=== PATIENT | female | born 1945 | race Caucasian/White ===

== ENCOUNTER 2017-03-24 15:41 | Inpatient (IN) | payer MEDICARE ==
[2017-03-24] MEDS ORDERED: Lorazepam 2 MG/ML VIAL ONE ×2 (16:35→17:10)
[2017-03-24] MEDS ORDERED: Ondansetron HCl/PF 4 MG/2 ML Vial IVP PRN (17:00)
[2017-03-24] MEDS ORDERED: Acetaminophen 325 MG TAB PO PRN (17:00)
[2017-03-24] MEDS ORDERED: cloNIDine 0.1 MG TAB PO PRN (17:03)
[2017-03-24] MEDS ORDERED: Lorazepam 1 MG TAB PO PRN (17:03)
[2017-03-24 17:41] LABS: #Lymphocytes 0.3 thou/uL (1.20-3.40); #Neutrophils 3.7 thou/uL (1.40-6.50); %Eosinophils 0.1 % (0.0-10.0); %Lymphocytes 7.6 % (21.0-51.0); %Monocytes 0.7 % (0.0-10.0); Hematocrit 34.3 % (36.0-47.0); Mean Platelet Volume 7.9 fL (7.4-10.4); Red Blood Cell (RBC) Count 3.44 mill/uL (4.20-5.40); White Blood Cell (WBC) Count 4.1 thou/uL (4.8-10.8)
[2017-03-24 17:49] LABS: ALT (SGPT) 21 U/L (8-55); AST (SGOT) 28 U/L (5-34); Alkaline Phosphatase 73 U/L (40-150); Anion Gap 18 mmol/L (10-20); BUN (Urea Nitrogen) 14 mg/dL (9.8-20.1); Bilirubin, Total 0.2 mg/dL (0.2-1.2); CK (CPK) 91 U/L (29-168); Calc. Creatinine Clearance 0 mL/min (70-130); Calcium 8.9 mg/dL (7.8-10.44); Carbon Dioxide 17 mmol/L (23-31); Chloride 110 mmol/L (98-107); Estimated GFR-MDRD 43; Globulin 2.5 g/dL (2.4-3.5); Protein, Total 6.4 g/dL (6.0-8.3)
--- NOTE | 2017-03-24 17:49 | HP ---
Transferred from [place]. Referred to the [facility] by [facility] for respiratory failure. HISTORY OF PRESENT ILLNESS: The patient states she has been short of breath for months to years, bad for 2 months, worse daily, cannot breathe lying down. She says she wakes up short of breath. She h as marked dyspnea on exertion and nonproductive cough. No fever, sweats or chills. PAST MEDICAL HISTORY: Pertinent for hypertension, hypothyroidism, anxiety, and depression. CURRENT MEDICATIONS: Lipitor 20 mg a day, escitalopram 10 mg a day, tramadol 50 mg as needed, tizani dine 4 mg once a day, levothyroxine 88 mcg a day, omeprazole 20 mg a day, lisinopril 20 mg a day. ALLERGIES: PENICILLIN, SULFA. PAST SURGICAL HISTORY: Hysterectomy, , appendectomy, bladder suspension. She has had breas t implants. FAMILY HISTORY: Mother has coronary artery disease. Father is with coronary artery disease , cancer, diabetes, and CVAs. SOCIAL HISTORY: , FULL CODE STATUS. is next of kin. She quit smoking cigarettes 40 years ago. She drinks alcohol, but will not give me an idea of how much. REVIEW OF SYSTEMS: General: No headaches. She states she did pass out 4 months ago, was seen in [facility] emergency room and released. Eyes: Poor vision. No double vision or flashing lights. She wears glasses. Ears, Nose and Throat: No ear pain or drainage. No nasal bleeding. No trouble swallowing . Cardiac: No chest pain. She states she cannot lie down and breathe. She wakes up at night short of breath. Respirations: Nonproductive cough, shortness of breath. She has cold all the time. Ga strointestinal: She vomits all the time, nauseated all the time. She states she has abdominal pain with vomiting. She occasionally had blood in her emesis, no blood in her stools. No diarrhea. Rebekah tourinary: She states she has little incontinence, no dysuria or hematuria. Musculoskeletal: She s tates she swells in her legs. She states she has pain all over all the time. I cannot get her to be more specific. Neurologic: No history of strokes, seizures or focal weakness. Psychiatric: Anxie ty, depression, on medicines. Skin: She states she has always bruised. Heme/Lymph: No tender or s wollen lymph nodes in axilla, inguinal or cervical area. PHYSICAL EXAMINATION: GENERAL: She is anxious, tremulous woman. INITIAL VITAL SIGNS: In [place], blood pressure 108/80, pulse 72, respirations 25, O2 saturatio n 100 on room air. She was subsequently put on CPAP, respiratory rate stayed the same, O2 sat stayed the same. Here, she has the BiPAP that has been removed. She still has a respiratory rate of 20-25 with 100% sat on room air. HEAD, EYES, EARS, NOSE AND THROAT: Reveals pupils equal, round, and reactive to light. Extraocular movements are intact. Sclerae white. Tympanic membranes are clear. Nose is clear. Oral mucous mem branes are wet. NECK: Supple, without jugular venous distention, adenopathy or thyromegaly. CHEST: Clear to auscultation and percussion. HEART: Regular rate and rhythm. First and second heart sounds are clear. There are no murmurs or g allops. ABDOMEN: Soft, bowel sounds are normal. There is no hepatosplenomegaly, no mass, no rebound, no bru its. EXTREMITIES: Reveal no cyanosis, clubbing or edema. PULSES: Carotid, radial, femoral, and dorsalis pedis pulses intact. SKIN: Warm and dry without bruises or rash. HEME/LYMPHATIC: No tender or swollen lymph nodes in axilla, inguinal or cervical area. X-RAY FINDINGS: Chest x-ray, no cardiomegaly, CHF or infiltrate. LABORATORY: White count 3.7, hemoglobin 12, platelet count 280. D-dimer less than 0.27. Blood gas, pH 7.35, CO2 35, O2 181. Comp metabolic profile normal except for a creatinine of 1.35. She has a lactic acid of 6.3. ASSESSMENT: 1. Hyperventilation syndrome. 2. Lactic acidosis. 3. Hypertension. 4. Anxiety, depression. 5. Hypothyroidism. PLAN: 1. Pulmonary consult. 2. T4, T3, TSH. 3. Repeat CBC and basic metabolic profile in the morning. 4. Repeat lactate in the morning. 5. I have discussed this case with Dr. Eng. He will see her with me. She is certainly confusin g; however, her excellent saturation, her months of a problem, her tremulousness and anxiety lead to a diagnosis of hyperventilation syndrome. She does admit to being numb on her fingertips in her mout h, but states this is present all the time. This lady could have chronic hyperventilation. I have d iscussed it as said with Dr. Eng and we are going to give her 1 mg of Ativan p.r.n. to see if we can calm her down. Certainly she is a dilemma in some ways, but I see no objective evidence for sign ificant respiratory problem in this patient from heart, lungs, etc.
[2017-03-24 17:52] LABS: Troponin I Less than 0.010 ng/mL (< 0.028)
[2017-03-24] MEDS ORDERED: Azithromycin 500 MG VIAL ONE (18:46)
[2017-03-24 20:46] LABS: Troponin I Less than 0.010 ng/mL (< 0.028)
[2017-03-24 21:07] VITALS: BMI 25.7
--- NOTE | 2017-03-24 21:19 | RAD ---
AP VIEW CHEST 03/24/17 HISTORY: Dyspnea. AP view chest is obtained on 03/24/17. Comparison made to an earlier in day 03/24/17. AP view chest demonstrates degenerative changes seen in the right acromioclavicular joint. Old healed fractures seen in the right 7, 8 and 9 ribs. Old healed left 8th rib fracture also seen. No other ac venkat abnormality seen. IMPRESSION: Healed bilateral old rib fractures. No acute intrathoracic abnormality seen. No evidence of effusions , pneumonia or pneumothorax seen. POS: [facility]
[2017-03-25] MEDS ORDERED: traMADol HCl 50 MG TAB PO PRN (01:20)
[2017-03-25] MEDS ORDERED: Fioricet 325/50/40 mg Tablet PO PRN (01:21)
[2017-03-25] MEDS: Zolpidem Tartrate 5 MG TAB PO PRN ×2 (01:32→21:56)
[2017-03-25 04:37] LABS: #Lymphocytes 0.5 thou/uL (1.20-3.40); #Monocytes 0.1 thou/uL (0.11-0.59); #Neutrophils 3.3 thou/uL (1.40-6.50); %Eosinophils 0.1 % (0.0-10.0); %Monocytes 3.3 % (0.0-10.0); Hematocrit 29.6 % (36.0-47.0); Mean Platelet Volume 7.8 fL (7.4-10.4); Red Blood Cell (RBC) Count 2.96 mill/uL (4.20-5.40); White Blood Cell (WBC) Count 3.9 thou/uL (4.8-10.8)
[2017-03-25 04:45] LABS: Anion Gap 11 mmol/L (10-20); BUN (Urea Nitrogen) 15 mg/dL (9.8-20.1); Calc. Creatinine Clearance 48 mL/min (70-130); Calcium 8.2 mg/dL (7.8-10.44); Carbon Dioxide 22 mmol/L (23-31); Chloride 112 mmol/L (98-107); Estimated GFR-MDRD 46
--- NOTE | 2017-03-25 15:02 | CON ---
DATE OF SERVICE: 03/25/2017 SERVICE: Pulmonary Medicine. REASON FOR CONSULTATION: Shortness of breath. HISTORY OF PRESENT ILLNESS: The patient is a 71-year-old white female. She is in her usual state of health currently. She presented to the hospital because of increasing cough, sputum production, and difficulty with breathing. She has difficulty breathing which is basically prominent feature of her life. She has not been formally diagnosed with any lung issues. She has a [id number] history of smoking, but quit very remotely. She has a cough on a daily basis. It is worse at night, first thin g in the morning. She has horrendous reflux disease, for which she takes antacid pill. This helps w ith some of her pain, but she continues to have persistent reflux. She endorses symptoms consistent with rhinitis, as well as obstructive sleep apnea. Either way, she landed in the emergency departmen t because of some of this difficulty with breathing. Up transiently, she was placed on BiPAP, but it became apparent when the ABG suggests she was hypoventilating that she did not need this therapy. S he was subsequently deescalated and a dose of Ativan was provided which seemed to provide her with a little bit of relief. Her thyroid was checked. On this, it appears that she is being over replaced. PAST MEDICAL HISTORY: 1. Hypertension. 2. Anxiety disorder. 3. Major depressive disorder. 4. Hypothyroidism. PAST SURGICAL HISTORY: 1. Hysterectomy. 2. section. 3. Appendectomy. 4. Bladder suspension. 5. Breast implants. FAMILY HISTORY: Noncontributory. SOCIAL HISTORY: Negative for current alcohol, tobacco or illicit drug use. She has a [id number] h istory of smoking, but quit over 40 years ago. She has no formal exposures to chemicals, dust, asbes tos or tuberculosis, but she [place] the soil is very topher and fine, and she feels that this is getting into her lungs. ALLERGIES: PENICILLIN. MEDICATIONS: List of her inpatient medications were reviewed. Couple of small updates were made at this time. REVIEW OF SYSTEMS: General, head, ears, eyes, nose, throat, cardiovascular, respiratory, GI, , mus culoskeletal, neurologic and skin is negative except as mentioned in the HPI. PHYSICAL EXAMINATION: VITAL SIGNS: Afebrile, pulse 76, blood pressure 116/75, respirations of 16, saturation 99% on room a ir. GENERAL: The patient is awake, alert, in no apparent distress. LUNGS: Excellent air entry. There is minimally prolonged expiratory phase. The right lung has expi ratory wheezes associated with forced exhalation. The left lung does not. I do not appreciate any c rackles. Rhonchi clear with cough on the right. HEART: Normal rate, regular. ABDOMEN: Soft, nontender, nondistended, bowel sounds positive. MUSCULOSKELETAL: No cyanosis or clubbing. There is no pitting in the bilateral lower extremities. NEUROLOGIC: Grossly nonfocal. LABORATORY DATA: WBC 3.9, hemoglobin 9.8, platelets 222,000. Neutrophil count is 83%. Basic metabo lic profile is essentially unremarkable with a down trending creatinine of 1.15. TSH 0.2. Liver fun ction studies are unremarkable. Cardiac enzymes x2 were negative. A blood gas was performed demonst rating normal pH with a low pCO2 and pO2 that was quite elevated. Blood cultures x2 are unremarkable to date. IMAGING: CT of the abdomen and pelvis from the demonstrated no obvious overt emphysematous gregory ges. I do not appreciate any bronchiectasis in the bibasilar region. Chest x-ray demonstrates some old rib fractures that have healed. That being said, the diaphragm hav e good contour to them suggesting that we are not dealing with her horrendous hyperexpansion of the b ilateral lung ely. ASSESSMENT: 1. Hyperthyroidism, iatrogenic. 2. Dyspnea on exertion. 3. Gastroesophageal reflux disease with terrible nighttime symptoms. 4. Rhinitis. 5. Obstructive sleep apnea, suspected. PLAN: At this point, we will give the patient nebulized medication to see if this provides her with any relief. If it does, she can be sent out on p.r.n. nebulizer and/or MDI type of medication. I wi ll have her return to clinic in roughly 2-3 weeks in the outpatient setting. A CT scan of the chest will be performed. My suspicion is there will not be anything on it referable to her dyspnea on exer tion. If it is, additional investigation may need to be considered, but if there is not, from purely lung perspective, she will be stable for transition out of the hospital. We need to back off on her Synthroid just a touch in the outpatient setting, and she will need to touch base with her primary c are physician regarding the appropriate dose of that medication. For the acid reflux, I recommended the patient not eat or drink within 2 hours of being or going to sleep, and I have requested the irineo ent to invest in something that allows her sleep on a wedge to prevent any reflux related inflammatio n of the lungs in the evening time. Once we get into the outpatient setting, I will investigate obst ructive sleep apnea, and look for any intrinsic lung disease with formal pulmonary function studies. I am not here this weekend, but if there are any questions, please notify Dr. Espino. I certainly thi nk she would be or from the lung perspective, it would be reasonable to dismiss her from the hospital if we find no abnormalities on the CT of the chest.
--- NOTE | 2017-03-25 16:35 | CT ---
CT OF THORAX NONCONTRAST 03/25/17 COMPARISON: 11/19/16 CLINICAL HISTORY: Dyspnea. FINDINGS: Granulomatous calcification of the chest is seen. There is coronary artery calcium. Calcified bilater al breast implants with areas of lobularity to indicate areas of extracapsular rupture. There is no evidence of consolidation or effusion. No pneumothorax. Multilevel Schmorl's node formati on seen within the imaged spine. Chronic appearing fracture deformity is seen at the lateral right cl avicle. There are remote appearing multifocal bilateral rib deformities to indicate sequela from migel te trauma. IMPRESSION: No evidence of consolidation or effusion. There is granulomatous calcification of the chest including punctate hyperdense nodularity. Diffuse vascular disease including coronary artery calcium. Evidence of remote trauma to the chest. Correlate with patient's history. POS: [facility]
--- NOTE | 2017-03-25 16:47 | RAD ---
LEFT HAND 3 VIEWS: Date: 03/25/17 HISTORY: Ulnar deviation of fingers. Comparison made to left hand films of 11/15/15. That exam revealed a displaced oblique fracture of th e fifth metacarpal. FINDINGS: On today's exam, there has been healing of the fifth metacarpal fracture. There is flexion deformity at the fifth MCP joint and at the fifth PIP joint which was noted on the prior exam. There is deformi ty of the proximal phalanx of the fifth finger and is suggesting old, healed fracture. There is exten boby deformity at the DIP joint of the fifth finger, which is more pronounced today than on the prior study. The other phalanges are unremarkable with mild degenerative changes seen at the IP joints. There is n arrowing of the radiocarpal joint with deformity of the distal radius, which is a stable finding. IMPRESSION: Deformities involving the fifth finger are described above. The flexion deformities at the fifth MTP and PIP joints are unchanged from prior exam. POS: [facility]
--- NOTE | 2017-03-25 16:52 | RAD ---
RIGHT HAND 3 VIEWS: Date: 03/25/17 HISTORY: Inflammatory arthritides. FINDINGS: There is deformity of the proximal phalanx of the fifth finger indicating old, healed fracture. There is subluxation at the fifth MCP joint with ulnar deviation of the fifth finger. There is narrowing of the other MCP joints with mild degenerative change. There is mild degenerative change in the IP joints. There is deformity of the fourth metacarpal indicating old, healed fracture. IMPRESSION: Deformity of the fifth finger appears secondary to old fracture involving the proximal phalanx of the fifth finger with associated subluxation at the fifth MCP joint. There is evidence of old, healed fr acture of the fourth metacarpal and there are degenerative changes as described. POS: [facility]
--- NOTE | 2017-03-25 18:16 | PRG ---
DATE OF SERVICE: 03/25/2007 SUBJECTIVE: The patient was seen and examined at the bedside. She is complaining about not feeling well and having some cough for 6 months, but last 3 weeks, it is much more pronounced. There is no a ny yellowish or greenish phlegm. It is mostly mucus, but she did not look any medical attention for that. Also, she complains about some whole body cramps. OBJECTIVE: VITAL SIGNS: Blood pressure is 118/79, pulse is 82, respiratory rate is 12, temperature is 98.0. Ma ximal temperature is 98.6, O2 saturations 100%. HEENT: Atraumatic, normocephalic. Eyes: PERRLA. Sclerae nonicteric. Oral mucosa is moist. NECK: Supple. LUNGS: Clear. HEART: S1, S2 normal. No S3, no S4. ABDOMEN: Soft, nontender, obese, nondistended. EXTREMITIES: No clubbing, cyanosis or edema. NEUROLOGIC: She is alert and oriented x4. There is no any motor or sensory deficits present. Crani al nerves are intact. LABORATORY DATA: White count of 3.9. Hemoglobin 9.8, MCV 100, hematocrit 29.6, neutrophils 83.6. C hemistry shows sodium of 141, potassium 4.4, chloride 112, CO2 of 22, creatinine 1.15, glucose 121. ASSESSMENT: 1. Hyperventilation syndrome. 2. Hypertension. 3. Anxiety, depression per history. 4. Hypothyroidism. PLAN: The patient was seen by seasoning mixer who asked for CT of the chest since her TSH third genera tion shows suppressed level at 0.1894. We might consider using less hormone skipping couple of days' of dosing and make sure that she follows up with the primary care physician to make some adjustments . As soon as her testing done by Dr. Eng is finished, she will be discharged home.
[2017-03-26] MEDS ORDERED: Lorazepam 0.5 MG TAB PO SCH ×2 (09:15→09:30)
[2017-03-26] MEDS: Escitalopram Oxalate 10 mg Tablet PO SCH (11:06)
--- NOTE | 2017-03-26 13:07 | PRG ---
DATE OF SERVICE: 03/26/2017 SUBJECTIVE: The patient started wheezing again. She noticed that overnight, she feels like there is some pressure on her chest. OBJECTIVE: VITAL SIGNS: Blood pressure is 147/74, temperature is 98, pulse 97, respiratory rate 20, O2 saturati on is 98. HEENT: Head is atraumatic, normocephalic. Oral mucosa is moist. NECK: Supple. No JVDs. LUNGS: Clear. HEART: S1, S2 normal. ABDOMEN: Soft, nontender. Bowel sounds are present. EXTREMITIES: No clubbing, cyanosis or edema. NEUROLOGIC: Intact. SKIN: No rash or erythema. LABORATORY DATA: None today. IMAGES: X-rays of both hands showed deformities involving the fifth finger of the left hand with fle xion deformities at the fifth MTP and PIP joints and the x-ray of the right hand showed deformity of the fifth finger appears secondary to old fracture involving the proximal phalanx of the fifth finger with associated subluxation at the fifth MCP joint. There is also evidence of old healed fracture o f the fourth metacarpal and there are degenerative changes as described. Also, the patient had a CT of the chest done, which showed no evidence of consolidation or effusion. There was a granulomatous calcification of the chest including punctuate hyperdense nodularity and diffuse vascular disease inc luding coronary artery calcium. IMPRESSION: Hyperventilation and persistent feeling of lack of oxygen despite lack of evidence in vi ew of new findings on CT with calcifications present in the vascular system along with the coronary a rtery system. We would obtain Cardiology consultation with Dr. Killian to get diagnostic workup of her problem since we do not have good explanation why she has that. Also, she has hypertension which is well controlled, anxiety and depression. She is on SSRI and hypothyroidism on replacement. PLAN: As mentioned above. Obtain Cardiology consultation. Start her on DuoNeb since she started stewart ving some wheezing and she would need inhaler after she is discharged home.
--- NOTE | 2017-03-26 14:52 | PRG ---
DATE OF SERVICE: 03/26/2017 SUBJECTIVE: He is doing well this morning. She is walking in the [place] without getting short of christin th. OBJECTIVE: VITAL SIGNS: Sats are 96, pulse 80, blood pressure 138/80, respirations are 18. CHEST: Reveals no wheezing. CARDIAC: Normal S1, S2. No gallops. ABDOMEN: Soft, no masses. ASSESSMENT: Dyspnea of unknown etiology. PLAN: We will plan outpatient workup by Dr. Eng. She can be discharged home with a rescue inhaler.
[2017-03-26] MEDS: Lorazepam 0.5 MG TAB PO SCH (20:06)
[2017-03-27] MEDS: Zolpidem Tartrate 5 MG TAB PO PRN (00:52)
[2017-03-27] MEDS ORDERED: Levothyroxine Sodium 88 MCG TAB PO SCH (06:00)
[2017-03-27] MEDS: Escitalopram Oxalate 10 mg Tablet PO SCH (07:45)
[2017-03-27] MEDS: Lorazepam 0.5 MG TAB PO SCH (07:45)
[2017-03-27 08:22] VITALS: BP 168/84; TEMP 98.7
--- NOTE | 2017-03-27 13:53 | PRG ---
DATE OF SERVICE: 03/27/2017 SUBJECTIVE: This morning, she is awake, alert, responsive. No shortness of breath. PHYSICAL EXAMINATION: VITAL SIGNS: Sats are 96% on room air, blood pressure 160/84, temperature 98, pulse ox 98%. CHEST: No wheezing. CARDIAC: Normal S1, S2. No gallops. ABDOMEN: Soft, no masses. IMPRESSION: Dyspnea, probably chronic obstructive pulmonary disease. PLAN: She is discharged home on MDI, metered dose inhaler. She will follow up with Dr. Eng [facility].
--- NOTE | 2017-03-27 16:57 | DIS ---
DATE OF ADMISSION: 03/24/2017 DATE OF DISCHARGE: 03/27/2017 DIAGNOSES AT THE TIME OF DISCHARGE: 1. Most likely a chronic bronchitis. 2. Coronary vessel calcifications on the CT of the chest suggestive of some coronary artery disease. This sounds like a chronic problem and stable, not requiring any intervention at this point, but re quires further investigation. HISTORY OF PRESENT ILLNESS: The patient is a 71-year-old female who was transferred from [facility] Room because of shortness of breath which was gradually getting worse. She was found to have a past medical history of hypertension, hypothyroidism, anxiety and depression. Durin g the emergency room evaluation, she was found to have white count of 3.7, hemoglobin 12, platelet co unt was 280. D-dimer was less than 0.27. Blood gases showed pH of 7.35, CO2 of 35, and pO2 was 181. Comprehensive metabolic panel was normal except for creatinine which was 1.35 and she had a lactic acid of 6.3. Her chest x-ray did not show any CHF or infiltrate or cardiomegaly. The patient got ad mitted to the hospital. Her free T3 and free T4 and TSH were evaluated and TSH came back suppressed so the patient was told to hold on taking her thyroid hormone for a couple of days, then restart the normal dose and follow up with the primary care physician for further management of that issue and derrick cheatham some adjustments to the dose. Also, the patient was seen by electrician maintenance, Dr. Eng who dk mmended to try some bronchodilators and apparently she responded well to bronchodilators. Also, the CT of the chest was done which showed no PE, no evidence of consolidation or effusion. There was tahmina e granulomatous calcification of the chest including punctuate hyperdense nodularity and diffuse vasc ular disease including coronary artery calcium along with some evidence of remote trauma to the chest . The patient also had x-rays done on her both hands which showed some deformities involving the fif th finger on the left side and flexion deformities at the fifth MTP and PIP joints. Also, on the rig ht side, x-ray of the hand showed deformity of the fifth finger which appears secondary to old fractu re involving the proximal phalanx of the fifth finger and associated subluxation of the fifth MCP terrance nt. Also, there was some evidence of old healed fracture of the fourth metacarpal and there were tahmina e degenerative changes present. The patient is doing well. She is not wheezing anymore. Her chest pressure is improved with inhaler, so most likely this is a chronic bronchitis type of picture. She is going to be discharged home. PHYSICAL EXAMINATION: VITAL SIGNS: Blood pressure is fluctuating from 130s to 160s. Temperature is 98.7, pulse is 79, res piratory rate is 16. LUNGS: Clear. CARDIOVASCULAR: S1, S2 normal. No S3, no S4, no any murmur. ABDOMEN: Soft, nontender, bowel sounds are present, no organomegaly. NEUROLOGIC: The patient is going to stay on a heart healthy diet. ACTIVITY: As tolerated. MEDICATIONS: At the time of discharge, she will have albuterol 1 puff twice a day and prescription f or, and she will continue on her escitalopram oxalate 10 mg once a day, levothyroxine 88 mcg every mo rning, atorvastatin 20 mg at bedtime, lisinopril 20 mg once a day, omeprazole 20 mg once a day, tizan idine 4 mg daily, and tramadol 50 mg q.i.d. She is going to follow up with primary care physician in 1 week and she will need probably further cardiac evaluation with stress testing or Cardiology refer ral.
== END 2017-03-27 12:32 | disposition home or self-care (01) | DRG 191 ==
LOC: ERS 15:41 → T4-A 20:10
PROVIDERS: ADMIT Internal Medicine; ATTEND Internal Medicine
DX: J42 Unspecified chronic bronchitis (principal); E87.2 Acidosis; I10 Essential (primary) hypertension; E03.9 Hypothyroidism, unspecified; F41.9 Anxiety disorder, unspecified; F32.9 Major depressive disorder, single episode, unspecified; Z88.0 Allergy status to penicillin; Z88.2 Allergy status to sulfonamides; Z87.891 Personal history of nicotine dependence; F45.8 Other somatoform disorders; I25.10 Atherosclerotic heart disease of native coronary artery without angina pectoris; M20.002 Unspecified deformity of left finger(s); M20.001 Unspecified deformity of right finger(s); J31.0 Chronic rhinitis; G47.33 Obstructive sleep apnea (adult) (pediatric)
CPT/HCPCS: 36415; 71010; 71250; 80048; 83605; 84436; 84443; 84479; 85025; 86200; 86430; 93005; 94640; 96374; 96375; 96376; J0456; J2060; J7620

== ENCOUNTER 2017-06-22 04:17 | Inpatient (IN) | payer MEDICARE, OTHER ==
[2017-06-22] MEDS ORDERED: Albuterol Sulfate 2.5 mg/3 ml Neb NEB PRN (04:51)
[2017-06-22] MEDS ORDERED: Milk Of Magnesia 30 ML UDCUP PO PRN (05:31)
[2017-06-22] MEDS ORDERED: Acetaminophen 325 MG TAB PO PRN (05:31)
[2017-06-22] MEDS ORDERED: Guaifenesin DM 100-10/5 ML UDCUP PO PRN (05:31)
[2017-06-22] MEDS ORDERED: Ondansetron HCl/PF 4 MG/2 ML Vial IVP PRN (05:31)
--- NOTE | 2017-06-22 05:57 | HP ---
PRIMARY CARE PHYSICIAN: Thais Hinojosa M.D. PRESENTING COMPLAINT: Shortness of breath. HISTORY OF PRESENT ILLNESS: Ms. Makenzie Mcclellan is a 72-year-old female with a past medical history of hypertension, hyperlipidemia, hypothyroidism, and GERD, who presents to the emergency room with progressively worsening shortness of breath for the past 1 week. She reports cold symptoms, nasal congestion, wheezing, and a cough occasionally productive of clear sputum for the past week. She also reports intermittent fevers with T-max of 100 degrees Fahrenheit. She took decongestants without improvement in her symptoms. Yesterday, she noted that she became even more short of breath, had difficulty completing sentences, and unable to catch her breath. She denies chest pain, palpitations, PND, orthopnea , or edema. No history of CHF. No history of nausea, vomiting, diarrhea, or constipation. She went to primary care physician where she was found to be hypoxic in the 80s and slightly hypotensive. She was wheezing. Her EKG showed normal sinus rhythm. A chest x-ray showed no infiltrates. She was immediately placed on oxygen, as her oxygen saturation was 82% on room air and started on nebulizer treatments and steroids; however, her oxygen saturation continues to drop to 80s on room air and her wheezing continues and she was then sent to [facility] for further care and admission to inpatient service. PAST MEDICAL HISTORY: Hypertension, hyperlipidemia, GERD, hypothyroidism. PAST SURGICAL HISTORY: Hysterectomy, bladder surgery. FAMILY HISTORY: Reviewed and noncontributory. SOCIAL HISTORY: Former smoker and smoked actively for 25 years. She also drinks alcohol socially, but no history of withdrawal symptoms. No illicit drug use. ALLERGIES: PENICILLIN. HOME MEDICATIONS: Albuterol sulfate 1 puff b.i.d., atorvastatin 20 mg daily, escitalopram oxalate 10 mg daily, levothyroxine 88 mcg daily, lisinopril 20 mg daily, omeprazole 20 mg daily, tizanidine 4 mg daily, tramadol 50 mg q.i.d. REVIEW OF SYSTEMS: Twelve-point review of systems was conducted and negative except as stated in HPI. PHYSICAL EXAMINATION: VITAL SIGNS: Stable, saturation 100% on 2 liters oxygen via nasal cannula. HEENT: Normocephalic, atraumatic. PERRLA, EOMI, not pale, anicteric. Moist mucous membranes. RESPIRATORY: Bilateral wheezing diffusely. No crackles appreciated. CARDIOVASCULAR: S1 and S2 only. Regular rate and rhythm. No murmurs, rubs, or gallops. NECK: Supple, full range of movement. No JVD. ABDOMEN: Bowel sounds positive, soft, nontender, nondistended. No hepatosplenomegaly. SKIN: Warm, dry, well perfused. No rashes or lesions. MUSCULOSKELETAL: No edema. No skeletal abnormalities. NEUROLOGIC: Alert and well oriented to time, place, and person. No focal deficits. PSYCHIATRIC: Normal mood and affect. LABORATORY DATA: CBC unremarkable as well as CMP. Initial troponin 0.021. BNP 86. Chest x-ray no acute abnormalities. EKG also with no signs of acute ischemia. ASSESSMENT AND PLAN: 1. Acute hypoxic respiratory failure. The patient likely has underlying chronic obstructive pulmonary disease, although this has not been formally diagnosed. Her last admission was about 2 months ago for similar issues and she was placed on albuterol on discharge. We will place her on scheduled and p.r.n. nebulizer therapy, IV Solu-Medrol, Levofloxacin for possible pulmonary infection. We will continue oxygen supplementation and wean off. She will need to be discharged on an anticholinergic inhaler w steroid, as well as a beta agonist inhaler. Would also need an outpatient PFT to formally diagnose COPD. 2. Hypertension. Blood pressure is currently at goal. We will introduce home regimen. 3. Hyperlipidemia. Continue statins. 4. Hypothyroidism. Last TSH was around 5 recently. We will continue her home levothyroxine dose. 5. History of cramp: The patient has been seen in the outpatient basis and placed on tizanidine and tramadol. Serum potassium WNL. CODE STATUS: FULL CODE. We will also follow up on blood cultures. MTDD
[2017-06-22 06:24] VITALS: BMI 24.8
[2017-06-22] MEDS: methylPREDNISolone Sod Succ/PF 125 MG/2 ML VIAL IVP SCH ×3 (08:57→17:11)
[2017-06-22] MEDS: Heparin 5,000 UNITS/ML VIAL SC SCH ×3 (08:57→21:30)
[2017-06-22] MEDS: Benzonatate 100 MG CAP PO SCH ×3 (08:58→21:30)
[2017-06-22] MEDS: Sodium Chloride 0.9% 1,000 ML IV SCH ×2 (08:58→21:32)
[2017-06-22] MEDS: Docusate 100 MG CAP PO SCH ×2 (08:58→21:30)
[2017-06-22] MEDS ORDERED: FLU VACC TS2017-18 (>65YR) 0.5 ML SYRINGE IM ONE (10:00)
[2017-06-22] MEDS ORDERED: Prevnar 13-Val Conj/PF 0.5 ML SYRINGE IM ONE (10:00)
[2017-06-22] MEDS ORDERED: tiZANidine HCl 4 MG TAB PO SCH (12:00)
[2017-06-23] MEDS: traMADol HCl 50 MG TAB PO PRN ×2 (00:59→06:13)
[2017-06-23] MEDS: methylPREDNISolone Sod Succ/PF 125 MG/2 ML VIAL IVP SCH ×2 (01:00→06:14)
[2017-06-23] MEDS ORDERED: Azithromycin 500 MG in Sodium Chloride 0.9% 250 ML 250 ML IVPB SCH (05:00)
[2017-06-23 05:42] LABS: #Lymphocytes 0.2 thou/uL (1.20-3.40); #Monocytes 0.2 thou/uL (0.11-0.59); #Neutrophils 5.9 thou/uL (1.40-6.50); %Eosinophils 0.1 % (0.0-10.0); %Lymphocytes 3.8 % (21.0-51.0); %Monocytes 3.4 % (0.0-10.0); %Neutrophils 92.7 % (42.0-75.0); Hemoglobin 10.1 g/dL (12.0-16.0); Mean Corpuscular Hemoglobin 31.4 pg (27.0-31.0); Mean Platelet Volume 7.5 fL (7.4-10.4); Platelet Count 178 thou/uL (130-400); RBC Distribution Width 12.1 % (11.5-14.5); Red Blood Cell (RBC) Count 3.23 mill/uL (4.20-5.40); White Blood Cell (WBC) Count 6.4 thou/uL (4.8-10.8)
[2017-06-23 05:47] LABS: Anion Gap 11 mmol/L (10-20); BUN (Urea Nitrogen) 17 mg/dL (9.8-20.1); Calc. Creatinine Clearance 51 mL/min (70-130); Calcium 7.9 mg/dL (7.8-10.44); Carbon Dioxide 23 mmol/L (23-31); Chloride 108 mmol/L (98-107); Estimated GFR-MDRD 54; Glucose 144 mg/dL (83-110); Potassium 4.2 mmol/L (3.5-5.1); Sodium 138 mmol/L (136-145)
[2017-06-23] MEDS ORDERED: tiZANidine HCl 4 MG TAB PO SCH (09:00)
--- NOTE | 2017-06-23 09:23 | PDOC.PN ---
- Subjective Encounter Start Date: 06/23/17 Encounter Start Time: 12:00 Subjective: Patient with resolution of SOB and hypoxia. Still some chest congestion. -: No fever. Doesn't have nebulizer at home. - Objective Resuscitation Status: Resuscitation Status FULL:Full Resuscitation MAR Reviewed: Yes Vital Signs & Weight: Vital Signs (12 hours) Temp Pulse Resp BP Pulse Ox 06/23/17 07:49 97.8 F 83 18 97 06/23/17 07:20 97.8 F 83 18 138/67 94 L 06/23/17 06:40 97 06/23/17 06:38 70 16 06/23/17 05:27 98 06/23/17 03:40 98.2 F 84 20 188/88 H 99 06/22/17 23:57 95 06/22/17 23:35 98.0 F 88 20 180/85 H 94 L Weight Weight 144 lb 14.4 oz I&O: 06/22/17 06/23/17 06/24/17 06:59 06:59 06:59 Intake Total 1305 Balance 1305 Result Diagrams: 06/23/17 04:47 06/23/17 04:47 Phys Exam - Physical Examination Constitutional: NAD HEENT: moist MMs Respiratory: no wheezing, no rales, no rhonchi, clear to auscultation bilateral Cardiovascular: RRR, no significant murmur Gastrointestinal: soft, non-tender, positive bowel sounds Musculoskeletal: no edema Neurological: non-focal, moves all 4 limbs Psychiatric: normal affect, A&O x 3 Dx/Plan (1) Acute respiratory failure with hypoxia Code(s): J96.01 - ACUTE RESPIRATORY FAILURE WITH HYPOXIA Status: Resolved Comment: Likely COPD, now sating well on room air. (2) Hypertension Code(s): I10 - ESSENTIAL (PRIMARY) HYPERTENSION Status: Chronic (3) Hyperlipidemia Code(s): E78.5 - HYPERLIPIDEMIA, UNSPECIFIED Status: Chronic (4) Hypothyroid Code(s): E03.9 - HYPOTHYROIDISM, UNSPECIFIED Status: Chronic (5) GERD (gastroesophageal reflux disease) Code(s): K21.9 - GASTRO-ESOPHAGEAL REFLUX DISEASE WITHOUT ESOPHAGITIS Status: Chronic Qualifiers: Esophagitis presence: without esophagitis Qualified Code(s): K21.9 - Gastro -esophageal reflux disease without esophagitis - Plan cont current plan of care, continue antibiotics change to oral abx and steroids, d/c home -: f/u with pulmonology in 2-3 weeks, patient given office contact -: info for Dr. Eng. * . - Discharge Day Encounter end time: 12:30
[2017-06-23] MEDS: Sodium Chloride 0.9% 1,000 ML IV SCH (09:28)
[2017-06-23] MEDS: Benzonatate 100 MG CAP PO SCH ×2 (09:28→16:16)
[2017-06-23] MEDS: Heparin 5,000 UNITS/ML VIAL SC SCH ×2 (09:28→16:16)
[2017-06-23] MEDS: Docusate 100 MG CAP PO SCH (09:29)
[2017-06-23 15:57] VITALS: BP 141/78; TEMP 97.5
--- NOTE | 2017-06-23 18:58 | DIS ---
DATE OF ADMISSION: 06/22/2017 DATE OF DISCHARGE: 06/23/2017 PRIMARY CARE PHYSICIAN: Dr. Thais Hinojosa. ADMISSION DIAGNOSES: 1. Acute hypoxic respiratory failure. 2. Hypertension. 3. Hyperlipidemia. 4. Hypothyroidism. DISCHARGE DIAGNOSES: 1. Acute hypoxic respiratory failure, resolved, likely secondary to chronic obstructive pulmonary di sease exacerbation. 2. Hypertension. 3. Hyperlipidemia. 4. Hypothyroidism. PROCEDURES: None. CONSULTATIONS: None. SUMMARY OF HOSPITAL COURSE: This is a 72-year-old white female who has had recurrent episodes of kamini rtness of breath and respiratory difficulty over the last few months and was actually admitted in the last year for few days and saw Dr. Eng and he suspected COPD. The patient has not followed up w ith him in his clinic. She has been seen in the [facility] several more times and h as been sent home with an inhaler, which has not seemed to help her symptoms. She had a return of up per respiratory tract symptoms over the last 3-4 days and then developed respiratory distress at home and went to [facility] and found to be in hypoxic respiratory failure. She was giv en nebulizers with resolution of her hypoxia. The patient was admitted and watched overnight. She h as been stable on room air and has not required any other interventions. She has been on steroids an d antibiotics since seen yesterday. Today, her exam was normal and she is being discharged home this time with a nebulizer and instructions to follow up with Dr. Eng in 2-3 weeks. DISCHARGE MANAGEMENT: Discharged home. Follow up with Dr. Hinojosa in next week and with Dr. Eng in 2-3 weeks. ACTIVITY: As tolerated. DIET: Healthy heart, low sodium diet. Equipment prescription given for home nebulizer with mask, which works better for her. MEDICATIONS: 1. DuoNeb 3 mL nebs q.4 hours as needed for coughing, wheezing, shortness of breath, 60 vials dispen sed. 2. Levaquin 500 mg daily for another 4 days. 3. Prednisone 20 mg twice a day for 6 days. 4. Tessalon Perles 200 mg every 8 hours as needed for coughing, 60 tablets dispensed. The patient is to resume all her home medications as well. 1. Tizanidine 4 mg daily. 2. Omeprazole 20 mg daily. 3. Lisinopril 20 mg daily. 4. Levothyroxine 88 mcg daily. 5. Lexapro 10 mg daily. 6. Atorvastatin 20 mg daily. 7. Tramadol as needed.
[2017-06-23] MEDS ORDERED: predniSONE 20 MG TAB PO SCH (21:00)
[2017-06-24] MEDS ORDERED: Levothyroxine Sodium 88 MCG TAB PO SCH (06:00)
[2017-06-24] MEDS ORDERED: Atorvastatin Calcium 20 MG TAB PO SCH (09:00)
[2017-06-24] MEDS ORDERED: Lisinopril 20 MG TAB PO SCH (09:00)
[2017-06-24] MEDS ORDERED: Escitalopram Oxalate 10 mg Tablet PO SCH (09:00)
== END 2017-06-23 17:55 | disposition home or self-care (01) | DRG 189 ==
LOC: ERS 04:17 → 2SE 04:49
PROVIDERS: ADMIT Internal Medicine; ATTEND Internal Medicine
DX: J96.01 Acute respiratory failure with hypoxia (principal); J44.1 Chronic obstructive pulmonary disease with (acute) exacerbation; E03.9 Hypothyroidism, unspecified; I10 Essential (primary) hypertension; E78.5 Hyperlipidemia, unspecified; K21.9 Gastro-esophageal reflux disease without esophagitis; Z87.891 Personal history of nicotine dependence
CPT/HCPCS: 36415; 80048; 85025; 90471; 90670; 90682; 93005; 94640; A4216; G0008; G0009; J1644; J1956; J2930; J7620; Q2036

== ENCOUNTER 2017-07-13 09:45 | Outpatient (CLI) | payer MEDICARE, OTHER ==
--- NOTE | 2017-07-13 12:11 | RAD ---
PA AND LATERAL CHEST X-RAY: 07/13/2017 HISTORY: Dyspnea. COMPARISON: 06/22/2017 FINDINGS: There are bilateral breast prostheses again noted. The cardiac silhouette and pulmonary vasculature are within normal limits. The lungs remain clear. Remote bilateral rib fractures are again seen. 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 V ascular calcification in the thoracic aorta. There has been no interval change from prior exam. IMPRESSION: 1. Stable chest without evidence of acute cardiopulmonary process. 2. Remote bilateral rib fractures with remote nonunion distal right clavicle fracture. POS: [facility]
== END 2017-07-13 09:46 | disposition home or self-care (01) ==
LOC: RAD 09:45
PROVIDERS: ATTEND Internal Medicine
DX: R06.00 Dyspnea, unspecified (principal); S42.031K Displaced fracture of lateral end of right clavicle, subsequent encounter for fracture with nonunion
CPT/HCPCS: 71046

== ENCOUNTER 2018-05-25 12:03 | Inpatient (IN) | payer MEDICARE ==
[2018-05-25 12:33] LABS: Base Excess-Venous -3.7 mmol/L (-2.0 to 3.0); Bicarbonate (HCO3v) 20.6 mmol/L (22.0-28.0); CO2 Tension (PvCO2) 33.6 mmHg (40.0-50.0); Calcium, Ionized 1.09 mmol/L (See Comments:); Chloride 104 mmol/L (98-107); Hemoglobin - Calc 11.4 g/dL (12.0-16.0); O2 Tension (PvO2) 52.1 mmHg (35.0-45.0); Potassium 4.2 mmol/L (3.5-5.1); Sodium 134 mmol/L (138-145); T. Carbon Dioxide 21.6 mmol/L (22.0-28.0); pH (Venous) 7.395 (7.320-7.430); vO2 Saturation-calc 86.7 % (60.0-85.0)
--- NOTE | 2018-05-25 14:49 | RAD ---
1 VIEW CHEST: Date: 05/25/18 COMPARISON: 05/25/18. HISTORY: Shortness of breath. FINDINGS: Atherosclerosis of aorta. Normal cardiac silhouette. Pulmonary vessels and hilum are normal. Costophr enic angles are clear. Chronic changes in lung parenchyma, without consolidation or mass. No pneumoth orax or acute osseous abnormalities. Old bilateral rib fractures are noted. IMPRESSION: No acute cardiopulmonary process. POS: [facility]
[2018-05-25 14:56] LABS: Troponin I 0.015 ng/mL (< 0.028)
[2018-05-25] MEDS ORDERED: CCU Electrolyte Replacement 1 EACH IVPB ONE (15:31)
[2018-05-25] MEDS ORDERED: Ibuprofen 200 MG TAB PO PRN (15:35)
--- NOTE | 2018-05-25 15:39 | PDOC.PULCN ---
Pulmonology Consult: HPI - Date of Consult Date: 05/25/18 Time: 15:30 - Consult Details Reason for Consult: copd exacerbation Requesting Physician: obi - History of Present Illness HPI: MARILYN ROGERS is a 73 year-old F with a history of COPD who comes in with exacerbation. She is having trouble speaking more than a few words and is on Bipap. She states she has been feeling short of breath and coughing with production for the last 2-3 days. She denies fever but has had chills/sweats. She has a remote 20 pack-year smoking history, states she quit >10 years ago. She has been admitted for COPD exacerbation 1 time in the last year. She denies chest pain. She states she has had some nausea but no vomiting. She denies swelling but has had orthopnea. On presentation to outside ED she had initial O2 sat of 78%. She denies using oxygen or CPAP at home. She was placed on CPAP and sats improved to high 80s. Patient received mag, decadron, duonebs, and levoquin in the ED. Patient states she saw Dr. Eng in clinic 1 time and will not go back. Patient denies any nebulizers or inhalers at home. Pulmonology Consult: ROS - Review of Systems ROS unobtainable: other (short of breath on bipap) Constitutional: chills, sweats. negative: fever Cardiovascular: orthopnea. negative: chest pain, palpitations, edema Respiratory: cough, orthopnea, productive cough, short of breath, wheezing. negative: chest soreness, chest tightness, pain on deep breathing Pulmonology Consult: PMH Source: patient Past Medical History: HTN, COPD, hypothyroidism - Family History Family history: reviewed and not pertinent - Social History Smoking Status: Former smoker (20 pack-year history, quit >10 years ago) Alcohol Use: daily Drug Use History: none Living Situation: independent Pulmonology Consult: Meds - Medications MAR Reviewed: Yes - Allergies Allergies/Adverse Reactions: Allergies Allergy/AdvReac Type Severity Reaction Status Date / Time Penicillins Allergy Verified 06/22/17 06:52 Pulmonology Consult: PE - Physical Exam Constitutional: NAD HEENT: PERRLA, moist MMs Neck: no nodes Cardiovascular: RRR, no significant murmur Respiratory: wheezes (inspiratory and expiratory) Gastrointestinal: soft, non-tender, no distention, positive bowel sounds Musculoskeletal: no edema, pulses present Neurological: non-focal, moves all 4 limbs Psychiatric: normal affect, A&O x 3 Skin: no rash, cap refill <2 seconds Pulmonology Consult: Results - ABG Interpretation ABG Results: POC Bicarbonate Calc 20.6 mmol/L (22.0-28.0) L 05/25/18 12:30 Pulmonology Consult: A/P - Problem (1) COPD (chronic obstructive pulmonary disease) Current Visit: Yes Status: Acute (2) Hypertension Current Visit: No Code(s): I10 - ESSENTIAL (PRIMARY) HYPERTENSION Status: Chronic (3) Hypothyroid Current Visit: No Code(s): E03.9 - HYPOTHYROIDISM, UNSPECIFIED Status: Chronic (4) Acute respiratory failure with hypoxia Current Visit: No Code(s): J96.01 - ACUTE RESPIRATORY FAILURE WITH HYPOXIA Status: Resolved - Time Time: 50% of the time was spent in coordination of care (as documented) at patient's floor/unit and/or counseling patient. Time with Patient: greater than 50 minutes - Plan Plan: # COPD exacerbation - duonebs q4 laverne, q2 prn - solumedrol q6 - cont levoquin - bipap as needed - ABG in AM Fluids: NS 100ml/hr Diet: regular PPx: lovenox Dispo: >2 midnights
[2018-05-25] MEDS ORDERED: Magnesium 2 GM/NS 0.9% 100 ML 2 GM in Premix Bag 1 BAG IVPB PRN (16:28)
[2018-05-25] MEDS ORDERED: Potassium Phosphate 12 MMOL in Sodium Chloride 0.9% 250 ML 250 ML IV PRN (16:28)
[2018-05-25] MEDS ORDERED: Potassium Chloride 40 MEQ in Sodium Chloride 0.9% 250 ML 250 ML IVPB PRN (16:28)
[2018-05-25] MEDS ORDERED: Potassium Phosphate 9 MMOL in Sodium Chloride 0.9% 100 ML IVPB PRN (16:28)
[2018-05-25] MEDS ORDERED: Potassium Chloride 40 MEQ in Premix Bag 1 BAG IVPB PRN (16:28)
[2018-05-25] MEDS ORDERED: Magnesium Oxide 400 MG TAB PO PRN ×2 (16:28)
[2018-05-25] MEDS ORDERED: CCU ELECTROLYTE REPLACEMENT PROTOCOL FS PRN (16:28)
[2018-05-25] MEDS ORDERED: Potassium Phosphate 15 MMOL in Sodium Chloride 0.9% 250 ML 250 ML IV PRN (16:28)
[2018-05-25] MEDS ORDERED: Potassium Chloride 20 MEQ TAB PO PRN (16:28)
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
[2018-05-25] MEDS: ALPRAZolam 0.25 MG TAB PO PRN (17:25)
[2018-05-25] MEDS: methylPREDNISolone Sod Succ 40 MG VIAL IVP SCH (17:25)
[2018-05-25] MEDS: Sodium Chloride 0.9% 1,000 ML IV SCH (17:25)
[2018-05-25 17:58] LABS: Troponin I 0.031 ng/mL (< 0.028)
[2018-05-25 18:29] VITALS: BMI 26.0
--- NOTE | 2018-05-25 19:52 | HP ---
CHIEF COMPLAINT: Worsening shortness of breath since 4 days. HISTORY OF PRESENT ILLNESS: A 73-year-old female with past medical history significant for COPD, hypertension, and hypothyroidism, who presents with worsening shortness of breath and cough associated with wheezing since about 4 days without acute worsening in the last 24 hours. History is limited. The patient is in respiratory distress. Most of the history was obtained by review of the medical record. The patient reportedly presented to [facility] with worsening shortness of breath. She was found to have acute respiratory distress as well as peenj-fj-[id number] respiratory acidosis with pH of 7.2, hence was treated with bronchodilators, oxygen, and noninvasive respiratory support with BiPAP. She was transferred over here to the emergency room for further evaluation and treatment. The patient was further treated with bronchodilators and antibiotics and was admitted for further treatment. She denied fever or sick contacts. She admitted to some sputum, which she said to be clear. She also denied chest pain, palpitation, nausea, or vomiting. PAST MEDICAL HISTORY: 1. COPD. 2. Former smoker. 3. Hypothyroidism. 4. Hypertension. 5. Anxiety disorder. PAST SURGICAL HISTORY: 1. Bladder surgery. 2. Hysterectomy. SOCIAL HISTORY: The patient lives with . She used to smoke, but stopped for more than 10 years ago. MEDICATIONS: 1. Tramadol. 2. Tizanidine. 3. Prednisone. 4. Omeprazole. 5. Lisinopril. 6. Synthroid 88. 7. Levaquin. 8. DuoNeb. 9. Celexa 10. 10. Tessalon Perles. 11. Albuterol inhaler. Notes that these medications could not be verified as patient was unable to provide significant history due to respiratory distress. ALLERGIES: PENICILLIN. REVIEW OF SYSTEMS: Pertinent positives were included in the history of present illness. This is grossly limited due to patient's respiratory distress. PHYSICAL EXAMINATION: VITAL SIGNS: On presentation to the [facility], the patient had blood pressure of 207/143 with a pulse of 125, respiratory rate of 30, temperature of 98.6, and SpO2 of 78 on room air. GENERAL: An elderly female, in moderate to severe respiratory distress. BiPAP mask is in place. HEENT: Normocephalic and atraumatic. Oral mucosa is dry. Extraocular muscles are grossly intact. NECK: Supple, nontender with full range of motion. CHEST: Decreased air movement with prolonged expiration and scattered wheezes. Work of breathing is increased. CARDIAC: Regular rhythm. Tachycardic with normal heart sounds 1 and 2. ABDOMEN: Full, soft, nontender, nondistended with normal bowel sounds. EXTREMITIES: Grossly normal looking and atraumatic with no obvious edema or erythema. NEUROLOGIC: Conscious and alert, oriented x3 with appropriate mental status. The patient moves all extremities. There is no tremor. SKIN: No obvious rash noted. DIAGNOSTIC DATA: Venous blood gas obtained at [facility] showed pH of 7.286, pCO2 of 45.6. BMP showed sodium 133, potassium 4.0, chloride 101. CBC showed WBC count of 6.7, hemoglobin of 12.0, MCV of 96.1, platelets of 248. PT 12.8, INR 1.0, and PTT 26.6. Troponin was 0.013. CMP showed sodium 136, potassium 4.1, chloride 99, CO2 21, anion gap 20, BUN 18, creatinine 1.33, estimated eGFR 39, glucose 146, calcium 9.6, total bilirubin 0.4, total protein 7.1, albumin 4.4, globulin 2.7, alkaline phosphatase 74, AST 30, ALT 24. Chest x-ray showed hyperinflated lung with no obvious acute infiltrate. EKG showed sinus tachycardia with rate of 123. No obvious ST changes or T-wave changes noted. ASSESSMENT: 1. Acute hypercarbic and hypoxic respiratory failure. This is due to chronic obstructive pulmonary disease exacerbation. 2. Chronic obstructive pulmonary disease exacerbation. 3. Sinus tachycardia, most likely reactive mediated due to chronic obstructive pulmonary disease exacerbation. 4. History of hypertension. The patient had accelerated hypertension initially , but this has improved, and currently, blood pressure is soft. 5. History of hypothyroidism. 6. Anxiety disorder. PLAN: 1. We will continue noninvasive respiratory support (BiPAP) started in the ER. Start antibiotic therapy with Levaquin as well as bronchodilators, mucolytics and steroids. We will also get sputum culture. 2. We will restart thyroid supplementation. We will hold antihypertensives for now. 3. We will also start the patient on IV fluids for presumed some dehydration due to increased insensible loss. 4. We get serial troponin to rule out acute myocardial infarction. 5. Status: Full codes. 6. DVT prophylaxis with Lovenox. 7. Diet: Heart healthy diet as tolerated. Job ID: [id number] [facility]
[2018-05-25 20:46] LABS: Troponin I 0.051 ng/mL (< 0.028)
[2018-05-25] MEDS: Famotidine 20 MG TAB PO SCH (21:17)
[2018-05-26] MEDS: methylPREDNISolone Sod Succ 40 MG VIAL IVP SCH ×3 (00:08→18:10)
[2018-05-26] MEDS: Sodium Chloride 0.9% 1,000 ML IV SCH ×2 (02:00→10:09)
[2018-05-26] MEDS: Acetaminophen 500 MG TAB PO PRN ×3 (03:52→20:58)
[2018-05-26 05:50] LABS: Anion Gap 16 mmol/L (10-20); BUN (Urea Nitrogen) 19 mg/dL (9.8-20.1); Calc. Creatinine Clearance 47 mL/min (70-130); Calcium 9.2 mg/dL (7.8-10.44); Carbon Dioxide 19 mmol/L (23-31); Chloride 107 mmol/L (98-107); Estimated GFR-MDRD 49; Glucose 110 mg/dL (83-110); Potassium 4.4 mmol/L (3.5-5.1); Sodium 138 mmol/L (136-145)
[2018-05-26 05:58] LABS: Band 12 % (5-11); Hemoglobin 11.1 g/dL (12.0-16.0); Lymphocytes 12 % (21-51); MDiff Complete? YES; Mean Corpuscular HGB CONC 32.9 g/dL (32.0-36.0); Mean Corpuscular Hemoglobin 32.9 pg (27.0-31.0); Mean Platelet Volume 7.9 fL (7.4-10.4); Monocytes 1 % (0-10); Neutrophil 75 % (42-75); Platelet Count 209 thou/uL (130-400); RBC Distribution Width 12.6 % (11.5-14.5); Red Blood Cell (RBC) Count 3.37 mill/uL (4.20-5.40); White Blood Cell (WBC) Count 3.7 thou/uL (4.8-10.8)
[2018-05-26] MEDS: Levothyroxine Sodium 88 MCG TAB PO SCH (06:33)
--- NOTE | 2018-05-26 08:06 | RAD ---
CHEST 1 VIEW: HISTORY: Dyspnea. Followup. COMPARISON: 05/15/2018. FINDINGS: Cardiac silhouette is magnified by projection. Pulmonary vasculature upper limits of normal. Medias tinum is midline with aortic calcification. No lobar consolidation or evidence of pneumothorax. Old right rib and clavicular fractures are apparent. IMPRESSION: Stable radiographic appearance of the chest. POS: [facility]
[2018-05-26] MEDS ORDERED: Enoxaparin Sodium 40 MG/0.4 ML SYRINGE SC SCH (09:00)
[2018-05-26] MEDS: Escitalopram Oxalate 10 mg Tablet PO SCH (10:04)
[2018-05-26] MEDS: Famotidine 20 MG TAB PO SCH ×2 (10:04→20:55)
[2018-05-26] MEDS ORDERED: Albuterol Sulfate 2.5 mg/3 ml Neb NEB PRN (10:10)
--- NOTE | 2018-05-26 10:35 | PRG ---
DATE OF SERVICE: 05/26/2018 SERVICE: Pulmonary Medicine. SUBJECTIVE: The patient is doing really well from respiratory standpoint. She indicates that her breathing is much better. She is still coughing. She is bringing up yellow, green, and white stuff. That being said, she is not coughing up any blood. She used BiPAP last night. She finally got a little bit of rest. She does not have much of an appetite. She is still having some nausea. She had some vomiting yesterday, but nothing significant. Otherwise, she is returning to her usual state of health. PHYSICAL EXAMINATION: VITAL SIGNS: Afebrile, pulse 103, blood pressure 130/69, respirations 18, and saturation 97% on room air. GENERAL: The patient is awake and alert, in no apparent distress. LUNGS: Decent air entry. There is a prolonged expiratory phase with polyphonic wheezing. No crackles are appreciated. Rhonchi are noted, but clear with cough. HEART: Normal rate, regular. ABDOMEN: Soft, nontender, and nondistended. Bowel sounds are positive. MUSCULOSKELETAL: No cyanosis or clubbing. Trace pitting in the bilateral lower extremities. NEUROLOGIC: Grossly nonfocal. LABORATORY DATA: WBC 3.7, hemoglobin 11.1, and platelets 209,000. INR 1.0. PH 7.395, pCO2 of 33, PO2 of 52 on a VBG. Basic metabolic profile and liver function studies are otherwise unremarkable. Troponin is gently trending upward. DIAGNOSTIC DATA: Chest x-ray demonstrates hyperexpansion of bilateral lung ely. Otherwise, no significant acute cardiopulmonary abnormality is noted. There are some old fractures. ASSESSMENT: 1. Acute hypoxic respiratory failure. 2. Chronic obstructive pulmonary disease with acute exacerbation. 3. Hoc-YV-ziymufece myocardial infarction. 4. Obstructive sleep apnea, likely. DISCUSSION AND PLAN: We will continue antibiotics, nebulized medications, and steroids. Since she still has nausea, we will leave her on the IV. As soon as she can tolerate p.o., we will switch her over to that. Pulmonary Critical Care will continue to follow. Ultimately, she will need to follow up with Pulmonary in the outpatient setting, so we can clarify her underlying lung disease, and consider sending her for polysomnogram. Job ID: [id number] [facility]
--- NOTE | 2018-05-26 17:43 | PDOC.PN ---
- Subjective Encounter Start Date: 05/26/18 Encounter Start Time: 17:41 Subjective: admitted with acute respiratory failure requiring BIPAP. Clinically improve -: Off BIPAP. C/o chest tightness. - Objective Vital Signs & Weight: Vital Signs (12 hours) Temp Pulse Resp Pulse Ox 05/26/18 13:17 87 20 95 05/26/18 08:00 95 05/26/18 07:15 98.1 F 05/26/18 07:13 95 18 97 Weight Weight 147 lb 6.4 oz Most Recent Monitor Data Heart Rate from ECG 92 NIBP 130/74 NIBP BP-Mean 92 Respiration from ECG 15 SpO2 97 I&O: 05/25/18 05/26/18 05/27/18 06:59 06:59 06:59 Intake Total 1520 0 Output Total 1500 0 Balance 20 0 Result Diagrams: 05/26/18 04:44 05/26/18 04:44 Phys Exam - Physical Examination Constitutional: NAD HEENT: PERRLA, moist MMs, sclera anicteric Neck: no JVD, supple, full ROM fair air entry with some transmitted sound. No distress Regular rhythm but tachycardic. Gastrointestinal: soft, non-tender, no distention, positive bowel sounds Musculoskeletal: no edema Neurological: non-focal, moves all 4 limbs Psychiatric: normal affect, A&O x 3 Dx/Plan (1) COPD with acute exacerbation Code(s): J44.1 - CHRONIC OBSTRUCTIVE PULMONARY DISEASE W (ACUTE) EXACERBATION Status: Acute (2) NSTEMI (non-ST elevated myocardial infarction) Code(s): I21.4 - NON-ST ELEVATION (NSTEMI) MYOCARDIAL INFARCTION Status: Acute (3) GERD (gastroesophageal reflux disease) Code(s): K21.9 - GASTRO-ESOPHAGEAL REFLUX DISEASE WITHOUT ESOPHAGITIS Status: Chronic Qualifiers: Esophagitis presence: without esophagitis Qualified Code(s): K21.9 - Gastro -esophageal reflux disease without esophagitis (4) Hyperlipidemia Code(s): E78.5 - HYPERLIPIDEMIA, UNSPECIFIED Status: Chronic (5) Hypertension Code(s): I10 - ESSENTIAL (PRIMARY) HYPERTENSION Status: Chronic (6) Hypothyroid Code(s): E03.9 - HYPOTHYROIDISM, UNSPECIFIED Status: Chronic (7) Acute respiratory failure with hypoxia Code(s): J96.01 - ACUTE RESPIRATORY FAILURE WITH HYPOXIA Status: Resolved Comment: Likely COPD, now sating well on room air. - Plan Start antithrombotic therapy with lovenox and asa -: Start low dose metoprolol -: Continue antibiotics, duonebs steroid and oxygen as needed -: Consult cardiology * .
[2018-05-26] MEDS ORDERED: Aspirin 325 mg Enteric Coated Tablet PO SCH (17:45)
[2018-05-26] MEDS: Enoxaparin Sodium 60 MG/0.6 ML SYRINGE SC SCH (20:55)
[2018-05-26] MEDS: Metoprolol Tartrate 25 MG TAB PO SCH (20:55)
[2018-05-26] MEDS: ALPRAZolam 0.25 MG TAB PO PRN (20:58)
[2018-05-26] MEDS ORDERED: Prevnar 13-Val Conj/PF 0.5 ML SYRINGE IM ONE (21:00)
[2018-05-27 05:12] LABS: #Lymphocytes 0.5 thou/uL (1.20-3.40); #Monocytes 0.3 thou/uL (0.11-0.59); #Neutrophils 3.9 thou/uL (1.40-6.50); %Basophils 0.3 % (0.0-1.0); %Eosinophils 0.2 % (0.0-10.0); %Lymphocytes 10.9 % (21.0-51.0); %Monocytes 5.8 % (0.0-10.0); %Neutrophils 82.9 % (42.0-75.0); Hemoglobin 9.3 g/dL (12.0-16.0); Mean Corpuscular HGB CONC 32.9 g/dL (32.0-36.0); Mean Corpuscular Hemoglobin 33.1 pg (27.0-31.0); Mean Platelet Volume 8.1 fL (7.4-10.4); Platelet Count 194 thou/uL (130-400); RBC Distribution Width 12.6 % (11.5-14.5); Red Blood Cell (RBC) Count 2.81 mill/uL (4.20-5.40); White Blood Cell (WBC) Count 4.7 thou/uL (4.8-10.8)
[2018-05-27 05:29] LABS: Anion Gap 12 mmol/L (10-20); BUN (Urea Nitrogen) 22 mg/dL (9.8-20.1); Calc. Creatinine Clearance 47 mL/min (70-130); Carbon Dioxide 20 mmol/L (23-31); Chloride 109 mmol/L (98-107); Estimated GFR-MDRD 48; Glucose 109 mg/dL (83-110); Potassium 4.3 mmol/L (3.5-5.1); Sodium 137 mmol/L (136-145)
[2018-05-27 05:32] LABS: Troponin I 0.025 ng/mL (< 0.028)
[2018-05-27 05:56] LABS: Band 8 % (5-11); Hemoglobin 9.3 g/dL (12.0-16.0); Lymphocytes 11 % (21-51); MDiff Complete? YES; Mean Corpuscular HGB CONC 32.3 g/dL (32.0-36.0); Mean Corpuscular Hemoglobin 32.3 pg (27.0-31.0); Monocytes 6 % (0-10); Neutrophil 75 % (42-75); Platelet Count 198 thou/uL (130-400); Platelet Morphology Comment Appears Adequate; RBC Distribution Width 12.7 % (11.5-14.5); Red Blood Cell (RBC) Count 2.88 mill/uL (4.20-5.40); White Blood Cell (WBC) Count 4.5 thou/uL (4.8-10.8)
[2018-05-27] MEDS: Levothyroxine Sodium 88 MCG TAB PO SCH (06:22)
[2018-05-27] MEDS: Bacteriostatic Water 30 ML VIAL FS PRN (06:22)
[2018-05-27] MEDS: methylPREDNISolone Sod Succ 40 MG VIAL IVP SCH ×2 (06:22→18:19)
[2018-05-27] MEDS: Famotidine 20 MG TAB PO SCH ×2 (09:44→21:15)
[2018-05-27] MEDS: Aspirin 325 mg Enteric Coated Tablet PO SCH (09:45)
[2018-05-27] MEDS: Escitalopram Oxalate 10 mg Tablet PO SCH (09:45)
[2018-05-27] MEDS: Enoxaparin Sodium 60 MG/0.6 ML SYRINGE SC SCH ×2 (09:45→21:16)
[2018-05-27] MEDS: Metoprolol Tartrate 25 MG TAB PO SCH ×2 (09:45→21:15)
--- NOTE | 2018-05-27 10:04 | CON ---
DATE OF CONSULTATION: 05/27/2018 INDICATION FOR CONSULTATION: A 73-year-old female with COPD exacerbation, who had slight elevation of cardiac enzymes. Troponin I is actually indeterminate. Would not consider this to be a myocardial infarction. She has no history of coronary artery disease in the past and cardiac enzymes are only slightly elevated up to on admission was 0.015, increased up to 0.05, and it is back down to 0.025. She denies any chest pain. EKG does not show any ischemia. She did have some tachycardia associated with her COPD exacerbation. This 73-year-old female, who has had a long history of COPD, was only diagnosed about a year ago with COPD. She recently was out in the weather, got cold, and then developed COPD exacerbation, presented to the hospital. She at this time denies any chest pain. She is in intensive care unit, has been started on medications and is feeling somewhat better, but still has some shortness of breath and has wheezing, but denies any chest pain. PAST MEDICAL HISTORY: Significant for COPD, hypothyroidism, hysterectomy at age 26, cataract surgery, and bladder reconstruction surgery. She has had multiple broken bones and fractures, 25 broken bone she says. She had a back injury. She had a fall a few months ago. SOCIAL HISTORY: She is . She has 4 children. No heart disease. She stopped smoking several years ago. Previous to that, smoked for about 20 years up to a pack a day. She drinks wine frequently. She worked in the past with her and did multiple other jobs. FAMILY HISTORY: Her father had a myocardial infarction in his 60s and apparently had several heart attacks since that time. ALLERGIES: SHE IS ALLERGIC TO PENICILLIN, WHICH CAUSES URTICARIA. MEDICATIONS: Prior to admission included; 1. Tramadol. 2. Tizanidine. 3. Omeprazole. 4. Lisinopril. 5. Levothyroxine. 6. Escitalopram. 7. Atorvastatin. 8. Albuterol sulfate. 9. Benzonatate. 10. DuoNebs. 11. Prednisone. 12. Zofran. REVIEW OF SYSTEMS: She wears glasses. She says she cannot walk very far due to weak bones. She denies any claudication. She has some varicose veins. She has occasional palpitations, COPD, dyspepsia, and arthralgias. She has had multiple episodes of syncope, which she says she gets too hot or is overstressed, she will pass out. She has episodes of vomiting in the past, which were improved after she was started on omeprazole. She has frequent urinary tract infections, for which she takes cranberry pills. She had lower extremity edema for about a year. PHYSICAL EXAMINATION: GENERAL: Reveals a middle-aged female, who does appear to be overall generally not in very good health. VITAL SIGNS: Blood pressure is 120/62, heart rate is 92, respiratory rate is 21, and O2 saturations 94%. HEENT: Shows the head to be normocephalic and atraumatic. Carotid pulses are present. LUNGS: I did not hear any significant bruits, but she does have increased noise from the lungs. Her chest has diffuse expiratory wheezing noted throughout. CARDIOVASCULAR: Reveals a regular rate and rhythm. I did not hear any significant murmurs, heaves, thrills, bruits, or rubs. ABDOMEN: Soft and nontender. Positive bowel sounds are present. EXTREMITIES: Show no clubbing, cyanosis, or edema. She does have some mild small varicose veins and reticular veins, but no extremity edema or significant varicosities. Pedal pulses are decreased, but are present. NEUROLOGIC: She appears to be intact. IMAGING: Her EKG shows a sinus rhythm with occasional sinus tachycardia. LABORATORY DATA: As noted above for the cardiac enzymes. Her other laboratory data shows potassium of 4.4, CO2 was 19, creatinine was 1.1, and sodium was 138. Hemoglobin was 9.3 with a hematocrit of 28.8, WBC of 4.5, and her MCV is slightly elevated at 100 indicative of some macrocytic anemia may be due to her alcohol use. IMPRESSION AND PLAN: 1. Chronic obstructive pulmonary disease exacerbation with indeterminate cardiac enzymes. Cardiac enzymes, most likely are elevated due to demand ischemia. She denies any chest pain. She has no EKG changes, did indicate ischemia and cardiac enzymes have trended downward. At this time from a cardiac standpoint, she appears to be stable at some point in time. She could undergo stress testing as an outpatient once her pulmonary problems have resolved. 2. History of hypertension. This is under good control at this time. 3. Hypercholesterolemia. We will continue with her atorvastatin. 4. Deconditioning due to multiple problems with her joints and she does have arthritis and arthralgias and overall general deconditioning. She is also on chronic steroids and complains of bruising. At this time, from a cardiac standpoint, she is stable. There are no further recommendations from the Cardiology standpoint at this time. I will sign off the case unless she has any further acute problems. We are more than happy to see her as an outpatient and perform further stress test or echocardiogram as indicated. We can also order echocardiogram while she is here, just to see if there is any significant abnormalities for her ejection fraction is concerned and we will evaluate for wall motion. Echocardiogram has been ordered, but has not yet been performed. We will evaluate that. If there are any significant changes, then I will revisit with the patient. Job ID: [id number]
--- NOTE | 2018-05-27 18:55 | PDOC.PN ---
- Subjective Encounter Start Date: 05/27/18 Encounter Start Time: 14:53 Subjective: Admitted with with respiratory distress. improved but still SOB. -: Cough is becoming more productive. - Objective Vital Signs & Weight: Vital Signs (12 hours) Temp Pulse Resp Pulse Ox 05/27/18 18:44 87 18 93 L 05/27/18 15:39 98.0 F 05/27/18 13:14 72 12 93 L 05/27/18 11:30 97.7 F 05/27/18 08:00 96 05/27/18 07:21 98.4 F Weight Weight 148 lb 4.8 oz Most Recent Monitor Data Heart Rate from ECG 74 NIBP 171/87 NIBP BP-Mean 115 Respiration from ECG 21 SpO2 93 I&O: 05/26/18 05/27/18 05/28/18 06:59 06:59 06:59 Intake Total 1520 1846 680 Output Total 9131 946 7322 Balance 20 1146 -370 Result Diagrams: 05/27/18 04:19 05/27/18 04:19 Phys Exam - Physical Examination Elderly female in mild to moderate respiratory distress. HEENT: PERRLA Neck: no JVD, supple, full ROM fair air entry with prolonged expiration and scattered transmitted sound and rhonchi Cardiovascular: RRR, no rub Gastrointestinal: soft, non-tender, no distention, positive bowel sounds Musculoskeletal: no edema Neurological: non-focal, moves all 4 limbs Psychiatric: A&O x 3 Dx/Plan (1) Acute respiratory failure with hypoxia Code(s): J96.01 - ACUTE RESPIRATORY FAILURE WITH HYPOXIA Status: Resolved Comment: Likely COPD, now sating well on room air. Improved. Off BIPAP (2) NSTEMI (non-ST elevated myocardial infarction) Code(s): I21.4 - NON-ST ELEVATION (NSTEMI) MYOCARDIAL INFARCTION Status: Acute (3) COPD with acute exacerbation Code(s): J44.1 - CHRONIC OBSTRUCTIVE PULMONARY DISEASE W (ACUTE) EXACERBATION Status: Acute (4) GERD (gastroesophageal reflux disease) Code(s): K21.9 - GASTRO-ESOPHAGEAL REFLUX DISEASE WITHOUT ESOPHAGITIS Status: Chronic Qualifiers: Esophagitis presence: without esophagitis Qualified Code(s): K21.9 - Gastro -esophageal reflux disease without esophagitis (5) Hyperlipidemia Code(s): E78.5 - HYPERLIPIDEMIA, UNSPECIFIED Status: Chronic (6) Hypertension Code(s): I10 - ESSENTIAL (PRIMARY) HYPERTENSION Status: Chronic (7) Hypothyroid Code(s): E03.9 - HYPOTHYROIDISM, UNSPECIFIED Status: Chronic - Plan Continue antibiotics, steroid and bronchodilators -: wean oxygen as tolerated. -: continue antithrombic therapy -: get sputum culture -: Appreciate cardiology and pulm input. Outpatient stress test recommeded. * .
[2018-05-27] MEDS: Acetaminophen 500 MG TAB PO PRN (19:21)
[2018-05-27] MEDS: ALPRAZolam 0.25 MG TAB PO PRN (19:21)
[2018-05-27] MEDS: Ondansetron PF 4 MG/2 ML Vial IVP PRN (19:21)
--- NOTE | 2018-05-27 19:30 | PRG ---
DATE OF SERVICE: 05/27/2018 SUBJECTIVE: Ms. Hartley is in no distress. She says she continues to feel better than she felt on presentation. She felt that she might do better for nebulizer treatments, were more frequent, so I have changed her nebs to q.4 hours while awake. I did switch her to p.o. antibiotics today. OBJECTIVE: LUNGS: Still remarkable for mild wheezes. HEART: Regular rhythm. ABDOMEN: Soft. LABORATORY DATA: White count 4.5, hemoglobin 9.3 which is stable, platelets 198,000. Sodium 137, potassium 4.3, chloride 109, bicarb 20, BUN 22, creatinine 1.11. IMPRESSION: 1. Chronic obstructive pulmonary disease. 2. Probable sleep apnea. 3. History of hypertension. 4. Lipid disorder. 5. Deconditioning. We will continue supportive care as above. I think she could be moved out of intermediate care unit. Job ID: [id number]
[2018-05-28] MEDS: Ondansetron PF 4 MG/2 ML Vial IVP PRN (02:20)
[2018-05-28] MEDS: Acetaminophen 500 MG TAB PO PRN ×3 (02:20→21:11)
[2018-05-28] MEDS: Levothyroxine Sodium 88 MCG TAB PO SCH (05:35)
[2018-05-28] MEDS: ALPRAZolam 0.25 MG TAB PO PRN ×3 (05:35→21:11)
[2018-05-28] MEDS: methylPREDNISolone Sod Succ 40 MG VIAL IVP SCH ×2 (05:35→17:09)
[2018-05-28] MEDS: Bacteriostatic Water 30 ML VIAL FS PRN (05:35)
[2018-05-28 06:16] LABS: Anion Gap 15 mmol/L (10-20); BUN (Urea Nitrogen) 21 mg/dL (9.8-20.1); Calc. Creatinine Clearance 50 mL/min (70-130); Calcium 8.6 mg/dL (7.8-10.44); Carbon Dioxide 18 mmol/L (23-31); Chloride 107 mmol/L (98-107); Estimated GFR-MDRD 51; Glucose 94 mg/dL (83-110); Potassium 4.8 mmol/L (3.5-5.1); Sodium 135 mmol/L (136-145)
[2018-05-28 08:31] LABS: Band 3 % (5-11); Hemoglobin 10.9 g/dL (12.0-16.0); Lymphocytes 27 % (21-51); MDiff Complete? YES; Mean Corpuscular HGB CONC 32.1 g/dL (32.0-36.0); Mean Corpuscular Hemoglobin 32.2 pg (27.0-31.0); Mean Platelet Volume 8.1 fL (7.4-10.4); Monocytes 1 % (0-10); Neutrophil 69 % (42-75); Platelet Count 204 thou/uL (130-400); RBC Distribution Width 12.6 % (11.5-14.5); Red Blood Cell (RBC) Count 3.37 mill/uL (4.20-5.40); White Blood Cell (WBC) Count 4.8 thou/uL (4.8-10.8)
--- NOTE | 2018-05-28 08:52 | PRG ---
DATE OF SERVICE: 05/28/2018 SUBJECTIVE: The patient is seen and examined at the bedside. She started feeling better, although she still has some chest pressure. She is able to cough up some phlegm, which is brownish in color. OBJECTIVE: VITAL SIGNS: Blood pressure is 169/83, pulse is 74, respiratory rate is 16, O2 saturation is 94% on 1/2 L of O2 by nasal cannula. HEENT: Head is atraumatic and normocephalic. Eyes are PERRLA. Sclerae are nonicteric. Oral mucosa is moist. NECK: Supple. LUNGS: Wheezing bilaterally present, moderate. HEART: S1, S2. Tachycardic. No S3. No S4. ABDOMEN: Soft, nontender. Bowel sounds are present. No organomegaly. EXTREMITIES: No clubbing, cyanosis, or edema. NEUROLOGICAL: She is alert and oriented x4. There is no any motor or sensory deficits. Cranial nerves are intact. LABORATORY DATA: Labs showed sodium of 135, potassium 4.8, chloride 107, CO2 of 18, BUN 21, creatinine 1.05. PCR respiratory pathogen negative for viral panel. IMPRESSION: 1. Respiratory failure secondary to acute exacerbation of chronic obstructive pulmonary disease. 2. Non-ST segment elevation myocardial infarction. 3. Gastroesophageal reflux disease. 4. Hypertension. 5. Hypothyroidism. 6. Hyperlipidemia. PLAN: Start her on Mucinex DM. Continue DuoNeb. Continue IV steroids. Continue levofloxacin. The patient will need to have a stress test after her respiratory status improves. Job ID: [id number]
[2018-05-28] MEDS: Escitalopram Oxalate 10 mg Tablet PO SCH (09:17)
[2018-05-28] MEDS: Famotidine 20 MG TAB PO SCH ×2 (09:17→21:11)
[2018-05-28] MEDS: Enoxaparin Sodium 60 MG/0.6 ML SYRINGE SC SCH ×2 (09:18→21:12)
[2018-05-28] MEDS: Aspirin 325 mg Enteric Coated Tablet PO SCH (09:18)
[2018-05-28] MEDS: Metoprolol Tartrate 25 MG TAB PO SCH ×2 (09:18→21:12)
[2018-05-28] MEDS: guaiFENesin/DM ER PO SCH ×2 (10:48→21:12)
[2018-05-28] MEDS ORDERED: Temazepam 15 MG CAP PO PRN (11:45)
--- NOTE | 2018-05-28 20:02 | PRG ---
DATE OF SERVICE: 05/28/2018 SUBJECTIVE: Makenzie Mcclellan says she is feeling better. She is in a better mood. She says her cough is decreased significantly. OBJECTIVE: VITAL SIGNS: Oximetry is 95%, blood pressure is stable respiratory rate is 18, and heart rate is 82. LUNGS: Remarkable for diffuse wheezes still. HEART: Regular rhythm. ABDOMEN: Soft. LABORATORY DATA: White count 4.8, hemoglobin 10.9, platelets 204. Sodium 135, potassium 4.8, chloride 107, bicarb 18, BUN 21, and creatinine 1.05. IMPRESSION: 1. Chronic obstructive pulmonary disease exacerbation, slowly improving. 2. Probable sleep apnea. 3. Hypertension. 4. Lipid disorder. 5. Deconditioning. She appears to be stable. 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 Job ID: [id number] MTDD
[2018-05-29 05:16] LABS: Hemoglobin 10.8 g/dL (12.0-16.0); Mean Corpuscular Hemoglobin 32.4 pg (27.0-31.0); Platelet Count 211 thou/uL (130-400); RBC Distribution Width 12.4 % (11.5-14.5); Red Blood Cell (RBC) Count 3.34 mill/uL (4.20-5.40); White Blood Cell (WBC) Count 4.6 thou/uL (4.8-10.8)
[2018-05-29 05:17] LABS: Lymphocytes 17 % (21-51); MDiff Complete? YES; Monocytes 6 % (0-10); Neutrophil 76 % (42-75); Reactive Lymphocytes 1 % (0-10)
[2018-05-29 05:18] LABS: Anion Gap 14 mmol/L (10-20); BUN (Urea Nitrogen) 23 mg/dL (9.8-20.1); Calc. Creatinine Clearance 49 mL/min (70-130); Calcium 8.8 mg/dL (7.8-10.44); Carbon Dioxide 21 mmol/L (23-31); Chloride 107 mmol/L (98-107); Estimated GFR-MDRD 50; Glucose 86 mg/dL (83-110); Potassium 4.3 mmol/L (3.5-5.1); Sodium 138 mmol/L (136-145)
[2018-05-29] MEDS: methylPREDNISolone Sod Succ 40 MG VIAL IVP SCH (06:00)
[2018-05-29] MEDS: Levothyroxine Sodium 88 MCG TAB PO SCH (06:01)
[2018-05-29] MEDS: Bacteriostatic Water 30 ML VIAL FS PRN (06:01)
[2018-05-29] MEDS: Acetaminophen 500 MG TAB PO PRN (06:01)
[2018-05-29] MEDS: ALPRAZolam 0.25 MG TAB PO PRN (06:01)
[2018-05-29] MEDS: Aspirin 325 mg Enteric Coated Tablet PO SCH (08:37)
[2018-05-29] MEDS: Escitalopram Oxalate 10 mg Tablet PO SCH (08:37)
[2018-05-29] MEDS: Famotidine 20 MG TAB PO SCH ×2 (08:37→21:14)
[2018-05-29] MEDS: Metoprolol Tartrate 25 MG TAB PO SCH ×2 (08:37→21:15)
[2018-05-29] MEDS: Enoxaparin Sodium 60 MG/0.6 ML SYRINGE SC SCH ×2 (08:37→21:14)
[2018-05-29] MEDS: guaiFENesin/DM ER PO SCH (10:49)
--- NOTE | 2018-05-29 13:56 | PRG ---
DATE OF SERVICE: 05/29/2018 SERVICE: Pulmonary Medicine. INTERVAL HISTORY: The patient is doing really well from respiratory standpoint. She is breathing comfortably. She has no complaints of nausea, vomiting, or diarrhea. She is coughing up a significant amounts of purulent sputum. That being said, there is nothing bloody. She is pleased with the progress that she is making. She does not use BiPAP in well over 24 hours. PHYSICAL EXAMINATION: VITAL SIGNS: Afebrile, pulse 110, blood pressure 162/131, respirations 16, and saturation 92% on room air. GENERAL: The patient is awake and alert, in no apparent distress. LUNGS: Excellent air entry. There is a prolonged expiratory phase, wheezing, or rhonchi present. No crackles are appreciated. HEART: Normal rate. Regular. ABDOMEN: Soft, nontender, and nondistended. Bowel sounds are positive. MUSCULOSKELETAL: No cyanosis or clubbing. No pitting in the bilateral lower extremities. NEUROLOGIC: Grossly nonfocal. LABORATORY DATA: WBC 4.6, hemoglobin 10.8, and platelets 211,000. Basic metabolic profile is unremarkable. Creatinine is stable at 1.08. Respiratory virus PCR is completely negative. Respiratory culture is also unremarkable to-date. ASSESSMENT: 1. Acute hypoxic respiratory failure. 2. Chronic obstructive pulmonary disease with acute exacerbation. 3. Non-ST elevation myocardial infarction. 4. Obstructive sleep apnea, suspected. DISCUSSION AND PLAN: We will continue antibiotics, nebulized medications, and steroids. The patient is stable for transition out of the IMCU to the medical unit. We will continue to follow. I have encouraged the patient to walk. When she is ready for discharge, she can be transitioned home. Job ID: [id number]
[2018-05-29 14:25] LABS: Folate (Folic Acid) 15.7 ng/mL (7.0-31.4)
--- NOTE | 2018-05-29 17:31 | PRG ---
DATE OF SERVICE: 05/29/2018 SUBJECTIVE: The patient is doing substantially better. She continues to have a harsh cough that is very productive of significant discolored sputum, although she has been able to wean off the oxygen and maintain reasonable saturations at this point. OBJECTIVE: VITAL SIGNS: Afebrile, pulse 86, respirations 24, O2 saturation 92% on room air, BP 162/131, but that is suspect reading. GENERAL APPEARANCE: Age-appropriate female. She is in no distress. She is awake, alert, pleasant, and cooperative. HEART: Regular rate and rhythm without murmurs. LUNGS: Harsh bilateral rales, not cleared by coughing. ABDOMEN: Soft, nontender, and nondistended. Positive bowel sounds. No masses. No organomegaly. EXTREMITIES: No edema. IMPRESSION AND PLAN: 1. Acute hypoxic respiratory failure, improved. She is now off the oxygen supplementation. 2. Chronic obstructive pulmonary disease exacerbation with some apparent bronchitis with negative sputum cultures. 3. Type 2 demand ischemia with elevated troponins. Cardiology has seen the patient and evaluated her. Echocardiogram actually looked pretty good. 4. Suspected obstructive sleep apnea. Continue to be followed by Pulmonology. 5. Hypertension. The patient's blood pressure is highly variable. She is having some unusually high diastolic numbers, which are almost nonphysiologic given the pulse pressure. Continue to monitor for now. 6. Hypothyroidism. Continue home medications. 7. Hyperlipidemia, stable. Continue home regimen. Job ID: [id number]
[2018-05-30] MEDS: Levothyroxine Sodium 88 MCG TAB PO SCH (05:46)
[2018-05-30] MEDS ORDERED: predniSONE 20 MG TAB PO SCH (08:00)
[2018-05-30] MEDS: Escitalopram Oxalate 10 mg Tablet PO SCH (08:17)
[2018-05-30] MEDS: Famotidine 20 MG TAB PO SCH (08:17)
[2018-05-30] MEDS: Enoxaparin Sodium 60 MG/0.6 ML SYRINGE SC SCH (08:17)
[2018-05-30] MEDS: Aspirin 325 mg Enteric Coated Tablet PO SCH (08:17)
[2018-05-30] MEDS: Metoprolol Tartrate 25 MG TAB PO SCH (08:18)
[2018-05-30] MEDS: Acetaminophen 500 MG TAB PO PRN (08:22)
--- NOTE | 2018-05-30 12:07 | PRG ---
DATE OF SERVICE: 05/30/2018 SERVICE: Pulmonary Medicine. INTERVAL HISTORY: The patient is doing remarkable from a respiratory standpoint. She has no complaints of chest pain, fevers, or chills. There has been no events overnight. Her sputum continues to clear. She has no complaints otherwise. She indicates that she would feel comfortable to go home. Strength is improving and she has been able to walk around her room much better. PHYSICAL EXAMINATION: VITAL SIGNS: Afebrile. Pulse 68, blood pressure 117/72, respirations 16, saturation 95% on room air. GENERAL: The patient is awake and alert, in no apparent distress. LUNGS: Excellent air entry with no prolonged expiratory phase or wheezing present. HEART: Normal rate, regular. ABDOMEN: Soft, nontender, nondistended. Bowel sounds are positive. MUSCULOSKELETAL: No cyanosis or clubbing. No pitting in the bilateral lower extremities. NEUROLOGIC: Grossly nonfocal. ASSESSMENT: 1. Acute hypoxic respiratory failure. 2. Chronic obstructive pulmonary disease with acute exacerbation. 3. Obstructive sleep apnea, suspected. 4. Flg-CE-geskyxurb myocardial infarction. DISCUSSION AND PLAN: The patient is stable for transition out of the hospital. At this point, she can be transitioned over to all p.o. medications and discharged home to complete her antibiotic and steroid course. I would like for her to follow up with me in the outpatient setting, if she is so inclined. She is already suggesting to me that this is a long track where she lives, so I encouraged her to find a local bagger meat, whom she could establish care with, so that you can workup for underlying lung process, and consider a polysomnogram. If she remains in-house, I will continue to follow but from my perspective she is stable for transition to home. Job ID: [id number]
[2018-05-30 13:41] VITALS: TEMP 98.2
[2018-05-30 14:59] VITALS: BP 133/82
--- NOTE | 2018-05-30 17:18 | PQF ---
CLINICAL DOCUMENTATION IMPROVEMENT CLARIFICATION FORM: ICD-10 Updated PLEASE DO AN ADDENDUM TO THE PROGRESS NOTE WITH ANY DOCUMENTATION UPDATES OR ADDITIONS AND CARRY THROUGH TO DC SUMMARY. THANK YOU. DATE: 05/30/2018 ATTN: Dr. Haddad Please exercise your independent, professional judgment in responding to the clarification form. Clinical indicators are provided on the bottom of this form for your review Please check appropriate box: [ ] AMI Type: [ ] AMI Type II [ ] NSTEMI [x ] Demand ischemia [ ] Other diagnosis [ ] Unable to determine In addition, please specify: Present on Admission (POA): [ x ] Yes [ ] No [ ] Unable to determine CLINICAL INDICATORS - SIGNS / SYMPTOMS / LABS PN 05/27 (): She has no history of CAD in the past and cardiac enzymes are only slightly elevated up to on admission was 0.015, increased up to 0.05 and back down to 0.025. Cardiac enzymes, most likely are elevated due to demand ischemia. PN 05/29: Type 2 demand ischemia with elevated troponins PN 05/30: (Albertina) Qrt-WT-mkitkbbel myocardial infarction RISKS: H&P 05/25: Acute hypercarbic and hypoxic respiratory failure. This is due to chronic obstructive pulmonary disease exacerbation. Sinus tachycardia. Hx of hypertension. TREATMENT: Order 05/25: Resp: O2 to keep sats 92%. Continuous Bi-pap . Dc'd 05/27 Cardiology consult Thank you, Kalina (This form is maintained as a part of the permanent medical record) 2014 [employer]. All Rights Reserved Kalina Castelan RN, BSN [email or web address] Office: [phone] [facility]
--- NOTE | 2018-06-03 17:05 | EKG ---
Test Reason : Blood Pressure : / mmHG Vent. Rate : 107 BPM Atrial Rate : 107 BPM P-R Int : 138 ms QRS Dur : 088 ms QT Int : 352 ms P-R-T Axes : 072 041 036 degrees QTc Int : 469 ms Sinus tachycardia Otherwise normal ECG Confirmed by AMANDEEP NAVARRETE D.O. ([id number]), international editorial producer TAIWO GIPSON ([id number]) on 06/03/2018 5:04:29 PM Referred By: Confirmed By:AMANDEEP NAVARRETE D.O.
== END 2018-05-30 15:06 | disposition home or self-care (01) | DRG 189 ==
LOC: ERS 12:03 → IMCU/EMU 15:10
PROVIDERS: ADMIT Internal Medicine Nephrology; ATTEND Internal Medicine Nephrology
PROC: 5A09457 Assistance with Respiratory Ventilation, 24-96 Consecutive Hours, Continuous Positive Airway Pressure (ICD-10-PCS; principal; 2018-05-25)
DX: J96.02 Acute respiratory failure with hypercapnia (principal); J44.1 Chronic obstructive pulmonary disease with (acute) exacerbation; I24.8 Other forms of acute ischemic heart disease; J96.01 Acute respiratory failure with hypoxia; I10 Essential (primary) hypertension; E03.9 Hypothyroidism, unspecified; F41.9 Anxiety disorder, unspecified; K21.9 Gastro-esophageal reflux disease without esophagitis; E78.5 Hyperlipidemia, unspecified; G47.33 Obstructive sleep apnea (adult) (pediatric); M19.90 Unspecified osteoarthritis, unspecified site; Z87.891 Personal history of nicotine dependence; Z79.899 Other long term (current) drug therapy; Z79.52 Long term (current) use of systemic steroids; Z79.51 Long term (current) use of inhaled steroids; Z88.0 Allergy status to penicillin; Z82.49 Family history of ischemic heart disease and other diseases of the circulatory system
CPT/HCPCS: 36415; 71045; 80048; 82330; 82607; 82746; 82803; 84484; 85007; 85025; 85027; 87070; 87205; 87633; 87798; 90471; 90670; 93005; 93306; 94640; 94660; 96365; G0009; J1650; J1956; J2405; J2920; J3475; J7050; J7620

== ENCOUNTER 2018-06-29 15:54 | Inpatient (IN) | payer MEDICARE ==
[2018-06-29] MEDS ORDERED: Albuterol Sulfate 2.5 mg/3 ml Neb ONE ×2 (16:33)
[2018-06-29 16:47] LABS: Actual Bicarbonate (HCO3a) 21.6 mEq/L (22-28); Analyzer IN Cardio ER; Calcium, Ionized 1.18 mmol/L (1.12-1.30); Carboxyhemoglobin (COHb) 0.1 gm% (0.0-3.0); Hemoglobin (Hb) 11.6 g/dL (12.0-16.0); O2 Tension (PaO2) 69.9 mmHg (> 70.0); Potassium - ABG Lab 4.58 mmol/L (3.70-5.30); pH, Arterial 7.43 (7.35-7.45)
[2018-06-29 16:59] LABS: Puncture Site RB
[2018-06-29] MEDS ORDERED: Dexamethasone 4 mg/ml Vial ONE (17:54)
[2018-06-29] MEDS ORDERED: Magnesium 2 GM/50 ML BAG (IN WATER) ONE (17:54)
[2018-06-29] MEDS ORDERED: Ondansetron PF 4 MG/2 ML Vial IVP PRN (20:04)
[2018-06-29] MEDS ORDERED: Zolpidem Tartrate 5 MG TAB PO PRN (20:04)
--- NOTE | 2018-06-29 20:21 | PDOC.EVN ---
Event Note - Event Note Event Note: H&P #[id number]
[2018-06-29] MEDS ORDERED: Metoprolol Tartrate 25 MG TAB PO SCH (21:00)
[2018-06-29] MEDS: cefTRIAXone\\ROCEPHIN 1 GM in Sodium Chloride 0.9% 100 ML IVPB SCH (22:09)
[2018-06-29] MEDS: Benzonatate 100 MG CAP PO PRN (22:09)
[2018-06-29] MEDS: Heparin 5,000 UNITS/ML VIAL SC SCH (22:12)
[2018-06-29] MEDS: traMADol HCl 50 MG TAB PO PRN (22:17)
[2018-06-29] MEDS: Azithromycin 500 MG in Sodium Chloride 0.9% 250 ML 250 ML IVPB SCH (23:16)
[2018-06-29 23:35] VITALS: BMI 25.7
[2018-06-30] MEDS: methylPREDNISolone Sod Succ 40 MG VIAL IVP SCH ×4 (00:40→17:56)
--- NOTE | 2018-06-30 02:49 | HP ---
CHIEF COMPLAINT: Shortness of breath. HISTORY OF PRESENT ILLNESS: This is a 73-year-old female who presented to the ED with COPD exacerbation from [place], was transferred here to the [facility] for COPD exacerbation. The patient states that she has had a few of these in the past, especially when the weather gets cold. Does not take home O2 and was recently given some azithromycin a few weeks back, which did help her symptoms. However, in the last 2 to 3 days, she is having worsening of shortness of breath, so she presents to the ER. The patient states that she has no other associated symptoms or complaints. No alleviating or aggravating factors noted. The patient does state that she has a primary care doctor, , otherwise she does not see any other specialists. The patient states that she denies any other nausea, vomiting, diarrhea, constipation, chest pain, fevers, or chills, but does attest to shortness of breath. The patient was seen and examined in the ER. No family at bedside. All questions answered. ALLERGIES: TO PENICILLIN. REVIEW OF SYSTEMS: All systems reviewed. Pertinent positives in HPI, otherwise negative. HOME MEDICATIONS: See MAR. FAMILY HISTORY: Positive for hypertension. PAST MEDICAL HISTORY: Positive for COPD, hypertension, as well as hypothyroidism. SOCIAL HISTORY: Social drinker. Denies any smoking. PHYSICAL EXAMINATION: VITAL SIGNS: Blood pressure 154/93, pulse of 89, temperature of 98.9, O2 saturation 94% on 2 L oxygen, respiratory rate of 21. GENERAL: The patient is lying in bed, in no acute discomfort, not distressed. HEENT: Pupils are equal, round, and reactive to light and accommodation. Oral cavity is moist and pink. RESPIRATORY: Reveals diffuse wheezing all throughout lung ely. Moderate respiratory distress, otherwise. No increase in AP diameter. CARDIOVASCULAR: Regular rate and rhythm. S1 and S2. No murmurs, rubs, or gallops appreciated. ABDOMEN: Positive bowel sounds. Soft, nontender, nondistended. NEUROLOGICAL: Cranial nerves 2 through 12 are intact. Oral cavity is moist and pink. No loss of motor or sensory function. ASSESSMENT: 1. Chronic obstructive pulmonary disease. 2. Hypertension. 3. Hypothyroidism. 4. Hyperlipidemia. PLAN: At this point in time, we will admit the patient to internal medicine team. The patient wishes to remain a full code. We will start the patient on steroids. We will start the patient also on Rocephin, azithromycin as she has been tried on Levaquin outpatient and failed. We will obtain chest x-ray in the morning as well as repeat labs in the morning. Further medical plan of care to be adjusted as the patient's condition continues. Case and plan were discussed with patient at length. She understood and agreed with this plan. Job ID: [id number]
[2018-06-30] MEDS: Levothyroxine Sodium 88 MCG TAB PO SCH (06:05)
[2018-06-30 06:21] LABS: #Lymphocytes 0.2 thou/uL (1.20-3.40); #Monocytes 0.1 thou/uL (0.11-0.59); #Neutrophils 3.3 thou/uL (1.40-6.50); %Eosinophils 0.2 % (0.0-10.0); %Lymphocytes 6.1 % (21.0-51.0); %Monocytes 2.1 % (0.0-10.0); %Neutrophils 91.7 % (42.0-75.0); Hemoglobin 9.3 g/dL (12.0-16.0); Mean Corpuscular Hemoglobin 33.4 pg (27.0-31.0); Mean Platelet Volume 7.3 fL (7.4-10.4); Platelet Count 232 thou/uL (130-400); RBC Distribution Width 13.4 % (11.5-14.5); White Blood Cell (WBC) Count 3.6 thou/uL (4.8-10.8)
[2018-06-30 06:41] LABS: Anion Gap 12 mmol/L (10-20); BUN (Urea Nitrogen) 20 mg/dL (9.8-20.1); Calc. Creatinine Clearance 52 mL/min (70-130); Calcium 8.8 mg/dL (7.8-10.44); Carbon Dioxide 25 mmol/L (23-31); Chloride 107 mmol/L (98-107); Estimated GFR-MDRD 53; Glucose 128 mg/dL (83-110); Potassium 4.6 mmol/L (3.5-5.1); Sodium 139 mmol/L (136-145)
--- NOTE | 2018-06-30 07:58 | RAD ---
CHEST 1 VIEW: Date: 06/30/18 INDICATION: Dyspnea. COMPARISON: Prior exam dated 06/29/18. FINDINGS: The examination is not appreciably changed from the comparison examination. There are bilateral breas t implants. Chronic osseous changes, including ununited right distal clavicle fracture is similar murphy earing. 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 IMPRESSION: Stable exam. POS: BH
[2018-06-30] MEDS ORDERED: Escitalopram Oxalate 10 mg Tablet PO SCH (09:00)
[2018-06-30] MEDS: Heparin 5,000 UNITS/ML VIAL SC SCH ×2 (09:45→20:18)
[2018-06-30] MEDS: Atorvastatin Calcium 20 MG TAB PO SCH (09:45)
[2018-06-30] MEDS: Lisinopril 20 MG TAB PO SCH (09:45)
[2018-06-30] MEDS: traMADol HCl 50 MG TAB PO PRN ×2 (10:06→20:28)
--- NOTE | 2018-06-30 10:56 | PDOC.PN ---
- Subjective Encounter Start Date: 06/30/18 Encounter Start Time: 10:54 Subjective: Continues with sob. Has a cough +white sputum, improving. No hemoptysis. -: Feeling better than when she first came in. Slight generalized weakness. -: Complaining of mild abdominal discomfort attributed to constipation. No bowel movement in 3 days. Reports flatus. No n/v. Eating/drinking without difficulty. No blood in stools. No urinary symptoms. No hematuria. - Objective Resuscitation Status - Order Detail: 06/29/18 20:04 Resuscitation Status Routine Resuscitation Status: FULL: Full Resuscitation Discussed with: family Vital Signs & Weight: Vital Signs (12 hours) Temp Pulse Resp BP BP Pulse Ox 06/30/18 09:45 166/80 H 06/30/18 07:21 98.2 F 84 16 166/80 H 100 06/30/18 05:02 97.5 F L 78 18 137/75 100 06/30/18 03:58 78 20 93 L 06/30/18 01:50 97.6 F 82 16 124/79 100 Weight Weight 149 lb 14.4 oz I&O: 06/29/18 06/30/18 07/01/18 06:59 06:59 06:59 Intake Total 950 Balance 950 Result Diagrams: 06/30/18 05:52 06/30/18 05:52 Phys Exam - Physical Examination Constitutional: NAD HEENT: PERRLA, moist MMs, oral pharynx no lesions Neck: supple, full ROM Respiratory: wheezing present expiratory wheezing throughout all lung ely Cardiovascular: RRR Gastrointestinal: soft, no distention, positive bowel sounds mild discomfort with palpation, no guarding/rigidity Musculoskeletal: no edema, pulses present Neurological: normal sensation, moves all 4 limbs Lymphatic: no nodes Psychiatric: normal affect, A&O x 3 Skin: no rash Dx/Plan (1) Constipation Code(s): K59.00 - CONSTIPATION, UNSPECIFIED Status: Acute Plan: Miralax and Senna. Continue to monitor. No concern for obstruction at this present time. (2) COPD with acute exacerbation Code(s): J44.1 - CHRONIC OBSTRUCTIVE PULMONARY DISEASE W (ACUTE) EXACERBATION Status: Acute Plan: IV Abx and steroids. Duo nebs changed from PRN to Scheduled. Awaiting Pulmonary Review. (3) Hyperlipidemia Code(s): E78.5 - HYPERLIPIDEMIA, UNSPECIFIED Status: Chronic (4) Hypertension Code(s): I10 - ESSENTIAL (PRIMARY) HYPERTENSION Status: Chronic Plan: Resume home meds. Monitor BP. (5) Hypothyroid Code(s): E03.9 - HYPOTHYROIDISM, UNSPECIFIED Status: Chronic - Plan cont current plan of care ADDENDUM: Patient seen by Dr. Pandey who advised patient -: likely to require 2-3 days of inpatient treatment given her current -: condition, including IV abx, steroids and nebs. -: Discussed with Dr. Haddad who agrees with inpatient status. * .
[2018-06-30] MEDS ORDERED: Polyethylene Glycol 3350 17 GM Packet PO SCH (11:00)
--- NOTE | 2018-06-30 12:15 | CON ---
DATE OF CONSULTATION: 06/30/2018 REASON FOR CONSULTATION: COPD exacerbation. HISTORY OF PRESENT ILLNESS: Ms. Mcclellan is a pleasant 73-year-old female, who was admitted to the hospital yesterday with increasing shortness of breath of a couple days duration. She has seen Dr. Eng in the past in regard to what sounds to be COPD. She is only being managed with a ProAir metered-dose inhaler. She is not on oxygen at home. She actually only has a very brief smoking history. She has no known exposures. She has a couple of dogs and a couple cats. Her raises chickens, but she says she is never around the chickens. PAST MEDICAL HISTORY: 1. Chronic obstructive pulmonary disease. 2. Hypertension. 3. Anxiety. 4. Hypothyroidism. PAST SURGICAL HISTORY: She has had bladder surgery, hysterectomy, multiple surgeries for broken bones. She has also had appendectomy. SOCIAL HISTORY: Smoking history as outlined above. Does not consume alcohol. Lives at home, which is near the [facility]. ALLERGIES: PENICILLIN. REVIEW OF SYSTEMS: A 12-point review of systems is otherwise negative. MEDICATIONS: Prior to admission, these were reviewed and are listed on the home medications section in the chart. PHYSICAL EXAMINATION: VITAL SIGNS: Temperature 97.5, pulse 84, blood pressure 166/80, O2 saturation 100%. HEENT: Pupils are reactive. Sclerae anicteric. Oropharynx clear. NECK: No adenopathy, JVD, or bruits. LUNGS: She has diffuse end-expiratory wheezing bilaterally. No accessory muscle use. CARDIAC: S1, S2 regular without murmur. ABDOMEN: Soft, nontender, and nondistended. EXTREMITIES: No clubbing, cyanosis, or edema. DIAGNOSTIC DATA: Chest x-ray shows no mass, effusion, or infiltrate. ASSESSMENT: Chronic obstructive pulmonary disease/asthmatic bronchitis with exacerbation. PLAN: In addition to the oxygen and the antibiotics, I would treat her with steroids and nebulization therapy. She needs PFTs performed as an outpatient. I am not sure she has been good in keeping her followup with Dr. Eng, but eventually the PFT test does need to be done to quantitate her lung function. My guess is she will need 2 to 3 days in the hospital to control symptoms. Job ID: [id number]
[2018-06-30] MEDS: Acetaminophen 325 MG TAB PO PRN (12:32)
[2018-06-30] MEDS: tiZANidine HCl 4 MG TAB PO SCH (20:18)
[2018-06-30] MEDS: Senokot S 8.6-50 MG TAB PO SCH (20:18)
[2018-06-30] MEDS: cefTRIAXone\\ROCEPHIN 1 GM in Sodium Chloride 0.9% 100 ML IVPB SCH (20:19)
[2018-06-30] MEDS: Azithromycin 500 MG in Sodium Chloride 0.9% 250 ML 250 ML IVPB SCH (22:55)
[2018-07-01] MEDS: methylPREDNISolone Sod Succ 40 MG VIAL IVP SCH ×4 (00:54→17:22)
[2018-07-01] MEDS: Levothyroxine Sodium 88 MCG TAB PO SCH (06:21)
[2018-07-01] MEDS: Acetaminophen 325 MG TAB PO PRN ×2 (08:35→12:45)
[2018-07-01] MEDS: Polyethylene Glycol 3350 17 GM Packet PO SCH (08:36)
[2018-07-01] MEDS: Lisinopril 20 MG TAB PO SCH (08:36)
[2018-07-01] MEDS: Senokot S 8.6-50 MG TAB PO SCH ×2 (08:36→21:57)
[2018-07-01] MEDS: Atorvastatin Calcium 20 MG TAB PO SCH (08:36)
[2018-07-01] MEDS: Heparin 5,000 UNITS/ML VIAL SC SCH ×2 (08:37→21:58)
[2018-07-01] MEDS: Benzonatate 100 MG CAP PO PRN (11:56)
--- NOTE | 2018-07-01 14:26 | PRG ---
DATE OF SERVICE: 07/01/2018 SUBJECTIVE: The patient continues to have trouble with shortness of breath and wheezing. She is coughing up purulent sputum. She also says her nose is stopped up. OBJECTIVE: VITAL SIGNS: Temperature is 98.4, pulse 83, respirations 18, O2 saturation 93% on room air, and blood pressure 146/78. HEENT: Unremarkable. NECK: No JVD. LUNGS: She has bilateral end-expiratory wheezing. CARDIAC: S1 and S2, regular. ABDOMEN: Soft. EXTREMITIES: No edema. LABORATORY DATA: No new labs were obtained today. ASSESSMENT: Chronic obstructive pulmonary disease/asthmatic bronchitis with exacerbation. PLAN: Continue antibiotics, nebulization therapy, steroids, and oxygen. I will write, so that she can have some nose spray if needed. Job ID: [id number]
[2018-07-01] MEDS ORDERED: guaiFENesin 200 MG TAB PO SCH (15:00)
--- NOTE | 2018-07-01 15:21 | PRG ---
DATE OF SERVICE: 07/01/2018 SUBJECTIVE: The patient continues to have significant cough that is productive , but she reports having a very difficult time trying to expectorate or management her sputum. OBJECTIVE: VITAL SIGNS: Temperature 98.4, pulse 83, respirations 18, O2 sat 93 % on room air, and blood pressure 146/78. GENERAL APPEARANCE: Age-appropriate female, in no distress. She is awake, alert, oriented, pleasant, and cooperative. HEART: Regular rate and rhythm without murmurs. LUNGS: Have diffuse harsh rales throughout. Lot of sputum and phlegm noted with coughing but does not resolve. ABDOMEN: Soft and nontender. EXTREMITIES: No cyanosis, clubbing, or edema. IMPRESSION AND PLAN: 1. Chronic obstructive pulmonary disease exacerbation with acute bronchitis. Continue with Rocephin, nebulizer, steroids, and supplemental oxygen as needed. We will add some guaifenesin as an expectorant. 2. Hypertension, stable. Continue with her usual home medications. 3. Hyperlipidemia. Stable, chronic. 4. Hypothyroidism, stable, chronic. Job ID: [id number] [facility]
[2018-07-01] MEDS: traMADol HCl 50 MG TAB PO PRN (17:21)
[2018-07-01] MEDS ORDERED: Guaifenesin DM 100-10/5 ML UDCUP PO PRN (20:02)
[2018-07-01] MEDS ORDERED: Oxymetazoline HCl 0.05% ( 15 ML ) NASAL SCH (21:00)
[2018-07-01] MEDS: cefTRIAXone\\ROCEPHIN 1 GM in Sodium Chloride 0.9% 100 ML IVPB SCH (21:56)
[2018-07-01] MEDS: tiZANidine HCl 4 MG TAB PO SCH (21:57)
[2018-07-01] MEDS: Azithromycin 500 MG in Sodium Chloride 0.9% 250 ML 250 ML IVPB SCH (21:58)
[2018-07-02] MEDS: methylPREDNISolone Sod Succ 40 MG VIAL IVP SCH ×4 (00:55→18:18)
[2018-07-02] MEDS: traMADol HCl 50 MG TAB PO PRN ×4 (01:12→19:57)
[2018-07-02] MEDS: Levothyroxine Sodium 88 MCG TAB PO SCH (05:27)
[2018-07-02] MEDS: Atorvastatin Calcium 20 MG TAB PO SCH (07:59)
[2018-07-02] MEDS: Polyethylene Glycol 3350 17 GM Packet PO SCH (08:00)
[2018-07-02] MEDS: Heparin 5,000 UNITS/ML VIAL SC SCH (08:00)
[2018-07-02] MEDS: Lisinopril 20 MG TAB PO SCH (08:00)
[2018-07-02] MEDS: Senokot S 8.6-50 MG TAB PO SCH ×2 (08:00→19:52)
--- NOTE | 2018-07-02 14:42 | PRG ---
DATE OF SERVICE: 07/02/2018 SUBJECTIVE: The patient is about the same. She says she might be breathing a little better than yesterday. OBJECTIVE: VITAL SIGNS: Temperature 98.5, pulse 81, blood pressure 158/70, O2 saturation 94% on room air. HEENT: Shows no acute findings. NECK: No JVD. LUNGS: She has mild expiratory wheezing. CARDIAC: S1, S2. Regular. ABDOMEN: Soft. EXTREMITIES: No edema. ASSESSMENT: Chronic obstructive pulmonary disease with exacerbation. PLAN: Continue antibiotics, nebulization treatments, and steroids. Improvement will just take some time. Job ID: [id number]
[2018-07-02] MEDS: tiZANidine HCl 4 MG TAB PO SCH (19:52)
[2018-07-02] MEDS: cefTRIAXone\\ROCEPHIN 1 GM in Sodium Chloride 0.9% 100 ML IVPB SCH (19:58)
[2018-07-02] MEDS: Azithromycin 500 MG in Sodium Chloride 0.9% 250 ML 250 ML IVPB SCH (21:55)
--- NOTE | 2018-07-02 22:22 | PDOC.PN ---
- Subjective Encounter Start Date: 07/02/18 Encounter Start Time: 11:00 Patient seen and examined for COPD Exacerbation. SOB improving. No fever. Cough with mild production. No new complaints. No overnight events - Objective Resuscitation Status - Order Detail: 06/29/18 20:04 Resuscitation Status Routine Resuscitation Status: FULL: Full Resuscitation Discussed with: family MAR Reviewed: Yes Vital Signs & Weight: Vital Signs (12 hours) Temp Pulse Resp BP Pulse Ox 07/02/18 20:00 98.5 F 79 20 174/84 H 86 L 07/02/18 18:30 92 18 96 07/02/18 16:01 75 20 95 Weight Weight 149 lb 14.4 oz I&O: 07/01/18 07/02/18 07/03/18 06:59 06:59 06:59 Intake Total 1120 1870 1040 Balance 1120 1870 1040 Result Diagrams: 06/30/18 05:52 06/30/18 05:52 Phys Exam - Physical Examination Constitutional: NAD Respiratory: no rales, wheezing present Scat rhonchi Cardiovascular: RRR, no rub Gastrointestinal: soft, non-tender, positive bowel sounds Musculoskeletal: no edema Dx/Plan - Plan DVT proph w/SCDs 1. Acute hypoxic resp failure 2. COPD exacerbation/Asthmatic Bronchitis 3. HTN 4. HLD 5. Hypothyroidism 6. ?SURESH 7. Chronic Anemia PLAN: Cont steroids/Nebs Cont Atbx Add Pepcid Cont current meds as below Review of Systems - Review of Systems Cardiovascular: negative: chest pain, palpitations, orthopnea, paroxysmal nocturnal dyspnea, edema, light headedness, other Gastrointestinal: negative: Nausea, Vomiting, Abdominal Pain, Diarrhea, Constipation, Melena, Hematochezia, Other - Medications/Allergies Allergies/Adverse Reactions: Allergies Allergy/AdvReac Type Severity Reaction Status Date / Time Penicillins Allergy Verified 06/29/18 21:49 Medications: Current Medications Acetaminophen (Tylenol) 650 mg PO Q4H PRN PRN Reason: Headache/Fever/Mild Pain (1-3) Last Admin: 07/01/18 12:45 Dose: 650 mg Albuterol/Ipratropium (Duoneb) 3 ml NEB [id number] [facility] Atorvastatin Calcium (Lipitor) 20 mg PO DAILY [facility] Last Admin: 07/02/18 07:59 Dose: 20 mg Benzonatate (Tessalon) 200 mg PO TID PRN PRN Reason: Cough Last Admin: 07/01/18 11:56 Dose: 200 mg Guaifenesin/Dextromethorphan (Robitussin Dm) 15 ml PO Q4H PRN PRN Reason: Cough Last Admin: 07/01/18 21:56 Dose: 15 ml Azithromycin 500 mg/ Sodium (Chloride) 250 mls @ 250 mls/hr IVPB Q24HR [facility] Last Admin: 07/02/18 21:55 Dose: 250 mls Ceftriaxone Sodium 1 gm/ (Sodium Chloride) 100 mls @ 200 mls/hr IVPB Q24HR [facility] Last Admin: 07/02/18 19:58 Dose: 100 mls Levothyroxine Sodium (Synthroid) 44 mcg PO 0600 [facility] Last Admin: 07/02/18 05:27 Dose: 44 mcg Lisinopril (Zestril) 20 mg PO DAILY [facility] Last Admin: 07/02/18 08:00 Dose: 20 mg Methylprednisolone Sodium Succinate (Solu-Medrol) 40 mg IVP Q6HR [facility] Last Admin: 07/02/18 18:18 Dose: 40 mg (Clorazepate Dipotassium [ Clorazepate Dipotassium] 7.5 Mg) 7.5 mg PO BID [facility] Ondansetron HCl (Zofran) 4 mg IVP Q6H PRN PRN Reason: Nausea/Vomiting Polyethylene Glycol (Miralax) 17 gm PO DAILY [facility] Last Admin: 07/02/18 08:00 Dose: Not Given Senna/Docusate Sodium (Senokot S) 1 tab PO BID [facility] Last Admin: 07/02/18 19:52 Dose: Not Given Sodium Chloride (Flush - Normal Saline) 10 ml IVF Q12HR PRN PRN Reason: Saline Flush Tizanidine HCl (Zanaflex) 4 mg PO 2100 [facility] Last Admin: 07/02/18 19:52 Dose: 4 mg Tramadol HCl (Ultram) 50 mg PO QID PRN PRN Reason: Pain Last Admin: 07/02/18 19:57 Dose: 50 mg Zolpidem Tartrate (Ambien) 5 mg PO HSPRN PRN PRN Reason: Insomnia
[2018-07-03] MEDS: methylPREDNISolone Sod Succ 40 MG VIAL IVP SCH ×3 (00:04→10:15)
[2018-07-03] MEDS: Levothyroxine Sodium 88 MCG TAB PO SCH (05:22)
[2018-07-03] MEDS: traMADol HCl 50 MG TAB PO PRN ×4 (05:27→21:49)
[2018-07-03] MEDS: Multivit, Therapeutic 1 TAB PO SCH (08:36)
[2018-07-03] MEDS: Atorvastatin Calcium 20 MG TAB PO SCH (08:36)
[2018-07-03] MEDS: Famotidine 20 MG TAB PO SCH ×3 (08:36→21:48)
[2018-07-03] MEDS: Lisinopril 20 MG TAB PO SCH (08:36)
[2018-07-03] MEDS: Senokot S 8.6-50 MG TAB PO SCH ×2 (08:37→20:44)
[2018-07-03] MEDS: Polyethylene Glycol 3350 17 GM Packet PO SCH (08:37)
--- NOTE | 2018-07-03 15:59 | PRG ---
DATE OF SERVICE: 07/03/2018 SERVICE: Pulmonary Medicine. INTERVAL HISTORY: The patient's breathing has actually improved a little bit. Day-by-day, she is getting a little bit better. She still has a cough with tenacious sputum. It feels like it is getting hung in her chest, and she is having a hard time getting it out. Otherwise, there has been no interval change to her condition. PHYSICAL EXAMINATION: VITAL SIGNS: Afebrile, pulse 90, blood pressure 179/99, respirations 16, saturation 93% on 2 L nasal cannula. GENERAL: The patient is awake and alert, in no apparent distress. LUNGS: Decent air entry. There is a prolonged expiratory phase with polyphonic wheezing, much of it sounds like it is coming from the larger airways too. HEART: Normal rate, regular. ABDOMEN: Soft, nontender, and nondistended. Bowel sounds are positive. MUSCULOSKELETAL: No cyanosis or clubbing. There is no pitting in the bilateral lower extremities. NEUROLOGIC: Grossly nonfocal. LABORATORY DATA: WBC 3.6, hemoglobin 9.3, platelets 232,000. A pH 7.43, pCO2 of 33, pO2 of 70. Basic metabolic profile is otherwise unremarkable. IMAGING DATA: Chest x-ray demonstrates no acute cardiopulmonary abnormality. ASSESSMENT: 1. Acute hypoxic respiratory failure. 2. Chronic obstructive pulmonary disease with acute exacerbation. 3. Obstructive sleep apnea, suspected. DISCUSSION AND PLAN: The patient is doing okay from a respiratory standpoint. We will continue her antibiotics, nebulized medications, and steroids. I will switch the steroids over to p.o. prednisone. She will need at least 5 days of antibiotics. All cough suppressing medications will be interrupted. We will schedule Mucinex, in addition to nebulized hypertonic saline. I will introduce some physiotherapy twice daily to see if we can facilitate expectoration of mucus. Pulmonary/Critical Care will continue to follow along while she remains in-house. At this point, she is not ready for discharge yet. She is going to increase activity as tolerated. Job ID: [id number]
--- NOTE | 2018-07-03 16:38 | PDOC.PN ---
- Subjective Encounter Start Date: 07/03/18 Encounter Start Time: 10:30 Patient seen and examined for Resp failure. Dry cough +. SOB on mild exertion. No new complaints. No overnight events - Objective Resuscitation Status - Order Detail: 06/29/18 20:04 Resuscitation Status Routine Resuscitation Status: FULL: Full Resuscitation Discussed with: family MAR Reviewed: Yes Vital Signs & Weight: Vital Signs (12 hours) Temp Pulse Resp BP BP Pulse Ox 07/03/18 14:08 90 16 07/03/18 10:08 70 16 07/03/18 08:36 179/99 H 07/03/18 08:00 93 L 07/03/18 07:22 98.0 F 68 18 179/99 H 93 L 07/03/18 06:50 80 16 Weight Weight 149 lb 14.4 oz I&O: 07/02/18 07/03/18 07/04/18 06:59 06:59 06:59 Intake Total 1870 2140 900 Balance 1870 2140 900 Result Diagrams: 06/30/18 05:52 06/30/18 05:52 Phys Exam - Physical Examination Constitutional: NAD Respiratory: no rhonchi, wheezing present Cardiovascular: RRR, no rub Gastrointestinal: soft, non-tender, positive bowel sounds Musculoskeletal: no edema Neurological: moves all 4 limbs Dx/Plan - Plan DVT proph w/SCDs 1. Acute hypoxic resp failure 2. COPD exacerbation/Asthmatic Bronchitis 3. HTN 4. HLD 5. Hypothyroidism 6. ?SURESH 7. Chronic Anemia PLAN: Cont steroids/Nebs/Atbx Refusing Walking program AM labs Cont current meds as below Review of Systems - Review of Systems Constitutional: negative: fever, chills, sweats, weakness, malaise, other Cardiovascular: negative: chest pain, palpitations, orthopnea, paroxysmal nocturnal dyspnea, edema, light headedness, other Gastrointestinal: negative: Nausea, Vomiting, Abdominal Pain, Diarrhea, Constipation, Melena, Hematochezia, Other - Medications/Allergies Allergies/Adverse Reactions: Allergies Allergy/AdvReac Type Severity Reaction Status Date / Time Penicillins Allergy Verified 06/29/18 21:49 Medications: Current Medications Acetaminophen (Tylenol) 650 mg PO Q4H PRN PRN Reason: Headache/Fever/Mild Pain (1-3) Last Admin: 07/01/18 12:45 Dose: 650 mg Albuterol/Ipratropium (Duoneb) 3 ml NEB [id number] [facility] Atorvastatin Calcium (Lipitor) 20 mg PO DAILY [facility] Last Admin: 07/03/18 08:36 Dose: 20 mg Famotidine (Pepcid) 20 mg PO BID [facility] Last Admin: 07/03/18 08:36 Dose: 20 mg Guaifenesin (Mucinex) 1,200 mg PO Q12HR [facility] Azithromycin 500 mg/ Sodium (Chloride) 250 mls @ 250 mls/hr IVPB Q24HR [facility] Last Admin: 07/02/18 21:55 Dose: 250 mls Ceftriaxone Sodium 1 gm/ (Sodium Chloride) 100 mls @ 200 mls/hr IVPB Q24HR [facility] Last Admin: 07/02/18 19:58 Dose: 100 mls Levothyroxine Sodium (Synthroid) 44 mcg PO 0600 [facility] Last Admin: 07/03/18 05:22 Dose: 44 mcg Lisinopril (Zestril) 20 mg PO DAILY [facility] Last Admin: 07/03/18 08:36 Dose: 20 mg Multivitamins (Theragran) 1 tab PO DAILY [facility] Last Admin: 07/03/18 08:36 Dose: 1 tab (Clorazepate Dipotassium [ Clorazepate Dipotassium] 7.5 Mg) 7.5 mg PO BID [facility] Ondansetron HCl (Zofran) 4 mg IVP Q6H PRN PRN Reason: Nausea/Vomiting Polyethylene Glycol (Miralax) 17 gm PO DAILY [facility] Last Admin: 07/03/18 08:37 Dose: Not Given Prednisone (Prednisone) 40 mg PO QAM-WM [facility] Senna/Docusate Sodium (Senokot S) 1 tab PO BID [facility] Last Admin: 07/03/18 08:37 Dose: Not Given Sodium Chloride (Flush - Normal Saline) 10 ml IVF Q12HR PRN PRN Reason: Saline Flush Sodium Chloride (Sodium Chloride 3%) 5 ml NEB BID-RT [facility] Tizanidine HCl (Zanaflex) 4 mg PO 2100 [facility] Last Admin: 07/02/18 19:52 Dose: 4 mg Tramadol HCl (Ultram) 50 mg PO QID PRN PRN Reason: Pain Last Admin: 07/03/18 16:14 Dose: 50 mg Zolpidem Tartrate (Ambien) 5 mg PO HSPRN PRN PRN Reason: Insomnia
[2018-07-03] MEDS: Sodium Chloride 3% (15 ML) NEB NEB SCH (19:40)
[2018-07-03] MEDS: guaiFENesin ER 600 MG TAB PO SCH (20:27)
[2018-07-03] MEDS: tiZANidine HCl 4 MG TAB PO SCH (20:27)
[2018-07-03] MEDS: cefTRIAXone\\ROCEPHIN 1 GM in Sodium Chloride 0.9% 100 ML IVPB SCH (20:29)
[2018-07-03] MEDS: Azithromycin 500 MG in Sodium Chloride 0.9% 250 ML 250 ML IVPB SCH (21:43)
[2018-07-03] MEDS: Acetaminophen 325 MG TAB PO PRN (21:50)
[2018-07-04] MEDS: traMADol HCl 50 MG TAB PO PRN ×3 (05:19→20:38)
[2018-07-04] MEDS: Levothyroxine Sodium 88 MCG TAB PO SCH (05:19)
[2018-07-04] MEDS: Sodium Chloride 3% (15 ML) NEB NEB SCH ×2 (06:46→19:18)
[2018-07-04 07:47] LABS: #Eosinphils 0.1 thou/uL (0.0-0.7); #Lymphocytes 1.4 thou/uL (1.20-3.40); #Monocytes 0.5 thou/uL (0.11-0.59); #Neutrophils 4.9 thou/uL (1.40-6.50); %Basophils 0.1 % (0.0-1.0); %Lymphocytes 20.5 % (21.0-51.0); %Monocytes 7.4 % (0.0-10.0); Hemoglobin 11.6 g/dL (12.0-16.0); Mean Corpuscular HGB CONC 32.2 g/dL (32.0-36.0); Mean Corpuscular Hemoglobin 33.2 pg (27.0-31.0); Mean Platelet Volume 7.6 fL (7.4-10.4); Platelet Count 297 thou/uL (130-400); RBC Distribution Width 12.9 % (11.5-14.5); White Blood Cell (WBC) Count 6.9 thou/uL (4.8-10.8)
[2018-07-04 08:02] LABS: Albumin 3.9 g/dL (3.4-4.8); Anion Gap 14 mmol/L (10-20); BUN (Urea Nitrogen) 26 mg/dL (9.8-20.1); BUN/Creatinine Ratio 23.64; Calc. Creatinine Clearance 48 mL/min (70-130); Calcium 8.8 mg/dL (7.8-10.44); Carbon Dioxide 23 mmol/L (23-31); Chloride 106 mmol/L (98-107); Estimated GFR-MDRD 49; Glucose 69 mg/dL (83-110); Magnesium 1.7 mg/dL (1.6-2.6); Phosphorus 3.7 mg/dL (2.3-4.7); Potassium 3.5 mmol/L (3.5-5.1); Sodium 139 mmol/L (136-145)
[2018-07-04] MEDS: guaiFENesin ER 600 MG TAB PO SCH ×2 (08:34→20:39)
[2018-07-04] MEDS: Lisinopril 20 MG TAB PO SCH (08:35)
[2018-07-04] MEDS: Multivit, Therapeutic 1 TAB PO SCH (08:36)
[2018-07-04] MEDS: Atorvastatin Calcium 20 MG TAB PO SCH (08:36)
[2018-07-04] MEDS: predniSONE 20 MG TAB PO SCH (08:36)
[2018-07-04] MEDS: Famotidine 20 MG TAB PO SCH ×2 (08:36→20:39)
[2018-07-04] MEDS: Senokot S 8.6-50 MG TAB PO SCH ×2 (08:37→20:44)
[2018-07-04] MEDS: Polyethylene Glycol 3350 17 GM Packet PO SCH (08:37)
--- NOTE | 2018-07-04 14:29 | PRG ---
DATE OF SERVICE: 07/04/2018 SERVICE: Pulmonary Medicine. INTERVAL HISTORY: The patient is doing fine from respiratory standpoint. She has been able to get up and walk around. She continues to have cough and is having a hard time liberating sputum. She indicates that she feels no better. That being said, she is moving much better air today. There has been no interval change to her condition. PHYSICAL EXAMINATION: VITAL SIGNS: Afebrile, pulse 72, blood pressure 159/81, respirations 16, saturation 100% on room air. GENERAL: The patient is awake and alert, in no apparent distress. LUNGS: Much improved air entry. There are extensive inspiratory and expiratory rhonchi. There is a prolonged expiratory phase with minimal polyphonic wheezing present. No crackles. HEART: Normal rate and regular. ABDOMEN: Soft, nontender, nondistended. Bowel sounds are positive. MUSCULOSKELETAL: No cyanosis or clubbing. No pitting in the bilateral lower extremities. NEUROLOGIC: Grossly nonfocal. LABORATORY DATA: WBC 6.9, hemoglobin 11.6, platelets 297,000. Basic metabolic profile is otherwise unremarkable/stable with a creatinine of 1.1. ASSESSMENT: 1. Acute hypoxic respiratory failure. 2. Chronic obstructive pulmonary disease with acute exacerbation. 3. Obstructive sleep apnea, suspected. DISCUSSION AND PLAN: The patient is doing fine from respiratory standpoint. We will continue our physiotherapy, antibiotics, nebulized medications, and steroids. At this point, she does not feel safe to transition home. As such, I think it is reasonable for us to keep her for another 24 hours. If she is not ready by tomorrow, we may need to look into some group home options. I will continue to follow along while the patient remains inhouse. Job ID: [id number]
[2018-07-04] MEDS: tiZANidine HCl 4 MG TAB PO SCH (20:39)
[2018-07-04] MEDS: cefTRIAXone\\ROCEPHIN 1 GM in Sodium Chloride 0.9% 100 ML IVPB SCH (20:40)
--- NOTE | 2018-07-04 22:12 | PDOC.PN ---
- Subjective Encounter Start Date: 07/04/18 Encounter Start Time: 13:30 - Objective Resuscitation Status - Order Detail: 06/29/18 20:04 Resuscitation Status Routine Resuscitation Status: FULL: Full Resuscitation Discussed with: family MAR Reviewed: Yes Vital Signs & Weight: Vital Signs (12 hours) Temp Pulse Resp BP Pulse Ox 07/04/18 19:47 98.1 F 91 20 139/92 H 99 07/04/18 19:18 87 18 96 07/04/18 19:10 87 18 96 07/04/18 13:36 80 16 Weight Weight 149 lb 14.4 oz I&O: 07/03/18 07/04/18 07/05/18 06:59 06:59 06:59 Intake Total 2140 2780 1750 Balance 2140 2780 1750 Result Diagrams: 07/04/18 07:15 07/04/18 07:15 Phys Exam - Physical Examination Constitutional: NAD Respiratory: no rhonchi, wheezing present Cardiovascular: RRR, no rub Gastrointestinal: soft, non-tender, positive bowel sounds Musculoskeletal: no edema Neurological: moves all 4 limbs Dx/Plan - Plan DVT proph w/SCDs 1. Acute hypoxic resp failure due to COPD exacerbation/Asthmatic Bronchitis 2. Chronic Anemia 3. HTN 4. HLD 5. Hypothyroidism 6. ?SURESH PLAN: Cont steroids/Nebs/Atbx Cont current meds as below Pulm following Review of Systems - Review of Systems Respiratory: Cough, Dry, Shortness of Breath, SOB with Excertion. negative: Hemoptysis, Pleuritic Pain, Sputum, Wheezing Cardiovascular: negative: chest pain, palpitations, orthopnea, paroxysmal nocturnal dyspnea, edema, light headedness, other Gastrointestinal: negative: Nausea, Vomiting, Abdominal Pain, Diarrhea, Constipation, Melena, Hematochezia, Other - Medications/Allergies Allergies/Adverse Reactions: Allergies Allergy/AdvReac Type Severity Reaction Status Date / Time Penicillins Allergy Verified 06/29/18 21:49 Medications: Current Medications Acetaminophen (Tylenol) 650 mg PO Q4H PRN PRN Reason: Headache/Fever/Mild Pain (1-3) Last Admin: 07/03/18 21:50 Dose: 650 mg Albuterol/Ipratropium (Duoneb) 3 ml NEB [id number] [facility] Last Admin: 07/04/18 19:10 Dose: 3 ml Atorvastatin Calcium (Lipitor) 20 mg PO DAILY [facility] Last Admin: 07/04/18 08:36 Dose: 20 mg Famotidine (Pepcid) 20 mg PO BID [facility] Last Admin: 07/04/18 20:39 Dose: 20 mg Guaifenesin (Mucinex) 1,200 mg PO Q12HR [facility] Last Admin: 07/04/18 20:39 Dose: 1,200 mg Azithromycin 500 mg/ Sodium (Chloride) 250 mls @ 250 mls/hr IVPB Q24HR [facility] Last Admin: 07/03/18 21:43 Dose: 250 mls Ceftriaxone Sodium 1 gm/ (Sodium Chloride) 100 mls @ 200 mls/hr IVPB Q24HR [facility] Last Admin: 07/04/18 20:40 Dose: 100 mls Levothyroxine Sodium (Synthroid) 44 mcg PO 0600 [facility] Last Admin: 07/04/18 05:19 Dose: 44 mcg Lisinopril (Zestril) 20 mg PO DAILY [facility] Last Admin: 07/04/18 08:35 Dose: 20 mg Multivitamins (Theragran) 1 tab PO DAILY [facility] Last Admin: 07/04/18 08:36 Dose: 1 tab Ondansetron HCl (Zofran) 4 mg IVP Q6H PRN PRN Reason: Nausea/Vomiting Polyethylene Glycol (Miralax) 17 gm PO DAILY [facility] Last Admin: 07/04/18 08:37 Dose: Not Given Prednisone (Prednisone) 40 mg PO QAM-WM [facility] Last Admin: 07/04/18 08:36 Dose: 40 mg Senna/Docusate Sodium (Senokot S) 1 tab PO BID [facility] Last Admin: 07/04/18 20:44 Dose: Not Given Sodium Chloride (Flush - Normal Saline) 10 ml IVF Q12HR PRN PRN Reason: Saline Flush Sodium Chloride (Sodium Chloride 3%) 5 ml NEB BID-RT [facility] Last Admin: 07/04/18 19:18 Dose: 5 ml Tizanidine HCl (Zanaflex) 4 mg PO 2100 [facility] Last Admin: 07/04/18 20:39 Dose: 4 mg Tramadol HCl (Ultram) 50 mg PO Q4H PRN PRN Reason: Moderate Pain (4-6) Last Admin: 07/04/18 20:38 Dose: 50 mg Zolpidem Tartrate (Ambien) 5 mg PO HSPRN PRN PRN Reason: Insomnia
[2018-07-04] MEDS: Azithromycin 500 MG in Sodium Chloride 0.9% 250 ML 250 ML IVPB SCH (22:15)
[2018-07-05] MEDS: Acetaminophen 325 MG TAB PO PRN ×3 (00:46→20:27)
[2018-07-05] MEDS: Levothyroxine Sodium 88 MCG TAB PO SCH (05:33)
[2018-07-05] MEDS: traMADol HCl 50 MG TAB PO PRN ×3 (05:36→20:26)
[2018-07-05] MEDS: Sodium Chloride 3% (15 ML) NEB NEB SCH ×2 (07:37→19:08)
[2018-07-05] MEDS: Polyethylene Glycol 3350 17 GM Packet PO SCH (08:44)
[2018-07-05] MEDS: Lisinopril 20 MG TAB PO SCH (08:44)
[2018-07-05] MEDS: Famotidine 20 MG TAB PO SCH ×2 (08:45→20:25)
[2018-07-05] MEDS: predniSONE 20 MG TAB PO SCH (08:45)
[2018-07-05] MEDS: Atorvastatin Calcium 20 MG TAB PO SCH (08:46)
[2018-07-05] MEDS: guaiFENesin ER 600 MG TAB PO SCH ×2 (08:46→20:25)
[2018-07-05] MEDS: Multivit, Therapeutic 1 TAB PO SCH (08:46)
[2018-07-05] MEDS: Senokot S 8.6-50 MG TAB PO SCH ×2 (08:47→20:25)
--- NOTE | 2018-07-05 14:45 | PRG ---
DATE OF SERVICE: 07/05/2018 SERVICE: Pulmonary Medicine. INTERVAL HISTORY: The patient is doing fine from respiratory standpoint. In fact, she is much improved. She is able to walk the hallways on 3 separate occasions today. She had a little bit of dyspnea, but it did not slow her down. This is profoundly improved compared to prior. She continues to cough and occasionally will bring up a little bit of sputum, but it is thinning out, and settling down significantly. She denies any fevers, chills, or other events overnight. PHYSICAL EXAMINATION: VITAL SIGNS: Afebrile. Pulse 68, blood pressure 165/92, respirations 20, and saturation 99% on room air. GENERAL: The patient is awake and alert, in no apparent distress. LUNGS: Excellent air entry with no prolonged expiratory phase or wheezing present. HEART: Normal rate and regular. ABDOMEN: Soft, nontender, nondistended. Bowel sounds are positive. MUSCULOSKELETAL: No cyanosis or clubbing. No pitting in the bilateral lower extremities. NEUROLOGIC: Grossly nonfocal. ASSESSMENT: 1. Acute hypoxic respiratory failure, resolved. 2. Chronic obstructive pulmonary disease with acute exacerbation, improving. 3. Obstructive sleep apnea, suspected. DISCUSSION AND PLAN: We will continue our steroids, and nebulized medications. She completed a course of antibiotics. Physiotherapy will be continued in the outpatient setting in the form of Mucinex, hypertonic saline nebulized solution, and acapella therapy for 30 minutes twice daily. She will return to clinic as previously directed. From my perspective, she is stable for discharge from the hospital. I will follow, if she remains in-house. Job ID: [id number]
[2018-07-05] MEDS: tiZANidine HCl 4 MG TAB PO SCH (20:26)
--- NOTE | 2018-07-05 22:02 | PDOC.PN ---
- Subjective Encounter Start Date: 07/05/18 Encounter Start Time: 11:30 - Objective Resuscitation Status - Order Detail: 06/29/18 20:04 Resuscitation Status Routine Resuscitation Status: FULL: Full Resuscitation Discussed with: family MAR Reviewed: Yes Vital Signs & Weight: Vital Signs (12 hours) Temp Pulse Resp BP Pulse Ox 07/05/18 20:00 98.4 F 82 18 172/92 H 93 L 07/05/18 19:08 81 16 97 07/05/18 18:52 68 16 96 07/05/18 11:56 68 16 99 Weight Weight 149 lb 14.4 oz I&O: 07/04/18 07/05/18 07/06/18 06:59 06:59 06:59 Intake Total 2780 2650 Balance 2780 2650 Result Diagrams: 07/04/18 07:15 07/04/18 07:15 Phys Exam - Physical Examination Constitutional: NAD Respiratory: no rales, wheezing present Cardiovascular: RRR, no rub Gastrointestinal: soft, non-tender, positive bowel sounds Musculoskeletal: no edema Dx/Plan - Plan DVT proph w/SCDs 1. Acute hypoxic resp failure due to COPD exacerbation/Asthmatic Bronchitis 2. Chronic Anemia 3. HTN 4. HLD 5. Hypothyroidism 6. ?SURESH PLAN: Still has significant wheezing Cont steroids/Nebs/Atbx Cont other meds as below Review of Systems - Review of Systems Respiratory: Cough, Dry, SOB with Excertion, Wheezing. negative: Shortness of Breath, Hemoptysis, Pleuritic Pain, Sputum Cardiovascular: negative: chest pain, palpitations, orthopnea, paroxysmal nocturnal dyspnea, edema, light headedness, other Gastrointestinal: negative: Nausea, Vomiting, Abdominal Pain, Diarrhea, Constipation, Melena, Hematochezia, Other - Medications/Allergies Allergies/Adverse Reactions: Allergies Allergy/AdvReac Type Severity Reaction Status Date / Time Penicillins Allergy Verified 06/29/18 21:49 Medications: Current Medications Acetaminophen (Tylenol) 650 mg PO Q4H PRN PRN Reason: Headache/Fever/Mild Pain (1-3) Last Admin: 07/05/18 20:27 Dose: 650 mg Albuterol/Ipratropium (Duoneb) 3 ml NEB [id number] [facility] Last Admin: 07/05/18 18:52 Dose: 3 ml Atorvastatin Calcium (Lipitor) 20 mg PO DAILY [facility] Last Admin: 07/05/18 08:46 Dose: 20 mg Famotidine (Pepcid) 20 mg PO BID [facility] Last Admin: 07/05/18 20:25 Dose: 20 mg Guaifenesin (Mucinex) 1,200 mg PO Q12HR [facility] Last Admin: 07/05/18 20:25 Dose: 1,200 mg Levothyroxine Sodium (Synthroid) 44 mcg PO 0600 [facility] Last Admin: 07/05/18 05:33 Dose: 44 mcg Lisinopril (Zestril) 20 mg PO DAILY [facility] Last Admin: 07/05/18 08:44 Dose: 20 mg Multivitamins (Theragran) 1 tab PO DAILY [facility] Last Admin: 07/05/18 08:46 Dose: 1 tab Ondansetron HCl (Zofran) 4 mg IVP Q6H PRN PRN Reason: Nausea/Vomiting Polyethylene Glycol (Miralax) 17 gm PO DAILY [facility] Last Admin: 07/05/18 08:44 Dose: Not Given Prednisone (Prednisone) 40 mg PO QA-WM [facility] Stop: 07/06/18 08:01 Last Admin: 07/05/18 08:45 Dose: 40 mg Senna/Docusate Sodium (Senokot S) 1 tab PO BID [facility] Last Admin: 07/05/18 20:25 Dose: 1 tab Sodium Chloride (Flush - Normal Saline) 10 ml IVF Q12HR PRN PRN Reason: Saline Flush Sodium Chloride (Sodium Chloride 3%) 5 ml NEB BID-RT [facility] Last Admin: 07/05/18 19:08 Dose: 5 ml Tizanidine HCl (Zanaflex) 4 mg PO 2100 [facility] Last Admin: 07/05/18 20:26 Dose: 4 mg Tramadol HCl (Ultram) 50 mg PO Q4H PRN PRN Reason: Moderate Pain (4-6) Last Admin: 07/05/18 20:26 Dose: 50 mg Zolpidem Tartrate (Ambien) 5 mg PO HSPRN PRN PRN Reason: Insomnia
[2018-07-06] MEDS: Acetaminophen 325 MG TAB PO PRN ×3 (02:08→11:29)
[2018-07-06] MEDS: traMADol HCl 50 MG TAB PO PRN ×3 (02:08→11:29)
[2018-07-06] MEDS: Levothyroxine Sodium 88 MCG TAB PO SCH (06:01)
[2018-07-06] MEDS: Sodium Chloride 3% (15 ML) NEB NEB SCH (06:33)
[2018-07-06] MEDS: Lisinopril 20 MG TAB PO SCH (08:22)
[2018-07-06] MEDS: Atorvastatin Calcium 20 MG TAB PO SCH (08:22)
[2018-07-06] MEDS: predniSONE 20 MG TAB PO SCH (08:22)
[2018-07-06] MEDS: Famotidine 20 MG TAB PO SCH (08:23)
[2018-07-06] MEDS: Multivit, Therapeutic 1 TAB PO SCH (08:24)
[2018-07-06] MEDS: guaiFENesin ER 600 MG TAB PO SCH (08:24)
[2018-07-06] MEDS: Senokot S 8.6-50 MG TAB PO SCH (08:25)
[2018-07-06] MEDS: Polyethylene Glycol 3350 17 GM Packet PO SCH (08:26)
[2018-07-06 11:29] VITALS: BP 150/84; TEMP 98.5
--- NOTE | 2018-07-06 17:27 | PRG ---
DATE OF SERVICE: 07/06/2018 SUBJECTIVE: The patient is doing really well from respiratory standpoint. Denies any current chest pain, fevers, or chills. Her cough is basically at baseline. Yesterday with hypertonic saline, she was able to liberate copious amounts of thin sputum. That being said, she does not have anything that is thick or hard coming up any longer. She was able to walk multiple short cuts around the loop on the fourth floor today without difficulty or stopping. Her dyspnea on exertion is good. She can remember here recently. PHYSICAL EXAMINATION: VITAL SIGNS: Afebrile, pulse 85, blood pressure 150/84, respirations 20, and saturation 94% on room air. GENERAL: The patient is awake and alert, in no apparent distress. LUNGS: Excellent air entry. Rhonchi are much improved. There is not much prolonged expiratory phase. Wheezing is no longer present. HEART: Normal rate and regular. ABDOMEN: Soft, nontender, and nondistended. Bowel sounds are positive. MUSCULOSKELETAL: No cyanosis or clubbing. No pitting in the bilateral lower extremities. NEUROLOGIC: Grossly nonfocal. ASSESSMENT: 1. Acute hypoxic respiratory failure, resolved. 2. Chronic obstructive pulmonary disease with acute exacerbation, resolved. 3. Obstructive sleep apnea, suspected. 4. Rheumatoid arthritis, not currently on disease modifying therapy. 5. Gastroesophageal reflux disease. DISCUSSION AND PLAN: She will elevate head of bed throughout time. She will also avoid p.o. within 2 hours of going to bed. We are going to introduce physiotherapy to her as I do think she has significant retained secretions. All cough suppressant medications will be avoided. On discharge from the hospital, she will resume her home inhalers. She will return to clinic in the outpatient setting if any increasing respiratory issues. Otherwise, she is going to prior talk to her primary care physician about a sleep study, and talking to somebody about getting on disease modifying therapy for her rheumatoid arthritis if she is stable for transition out of the hospital today. Pulmonary will continue to follow if she remains in-house but my suspicion is she will be transitioned home today. Job ID: [id number]
--- NOTE | 2018-07-06 18:09 | DIS ---
DATE OF ADMISSION: 06/29/2018 DATE OF DISCHARGE: 07/06/2018 DISCHARGE DISPOSITION: Home with [facility]. FOLLOWUP: 1. Follow up with primary care physician, Dr. Thais Hinojosa in 1 week. 2. Follow up with primary body presser in [place] as scheduled. ALLERGIES: THE PATIENT IS ALLERGIC TO PENICILLIN. DISCHARGE MEDICATIONS: 1. DuoNeb every 6 hourly. 2. Multivitamin 1 tablet daily. All other home medications were left unchanged. Please note that the patient has completed antibiotics and steroids during this hospital stay. The patient was seen and examined on the day of discharge. Denies any new complaints. Shortness of breath and wheezing are gradually improving. BRIEF HOSPITAL COURSE: The patient is a 73-year-old female with COPD, presented to the hospital with worsening shortness of breath. A workup was consistent with COPD exacerbation. The patient was monitored on the medical floor. She was started on oxygen, nebulizer treatment, antibiotics, and steroids. The patient was also seen by Pulmonary, Dr. Eng. Chest x-ray was negative for infiltrate. Her ABGs in the emergency room showed pH of 7.43 with pCO2 of 33, pO2 of 69.9 with O2 saturation of 93.5% and bicarbonate of 21.6. She also had mild renal insufficiency with creatinine 1.3 on admission, that improved to 1.0. The patient also required chest physiotherapy. Influenza testing was negative. The patient has been cleared by Dr. Eng for discharge. FINAL DIAGNOSES: 1. Acute hypoxic respiratory failure secondary to chronic obstructive pulmonary disease exacerbation. 2. Asthmatic bronchitis. 3. Hypertension. 4. Hyperlipidemia. 5. Hypothyroidism. 6. Suspected sleep apnea. 7. Mild acute kidney injury on chronic kidney disease stage 3. 8. Macrocytic anemia. 9. Penicillin allergy. PLAN: Plan of care was discussed with the patient in detail. She stated understanding. Job ID: [id number]
== END 2018-07-06 14:33 | disposition home health service (06) | DRG 189 ==
LOC: ERS 15:54 → OBSVTOIN 19:49 → T4-B 19:49
PROVIDERS: ADMIT Family Medicine; ATTEND Family Medicine
DX: J96.01 Acute respiratory failure with hypoxia (principal); J44.1 Chronic obstructive pulmonary disease with (acute) exacerbation; J45.901 Unspecified asthma with (acute) exacerbation; N17.9 Acute kidney failure, unspecified; E03.9 Hypothyroidism, unspecified; E78.5 Hyperlipidemia, unspecified; K59.00 Constipation, unspecified; M06.9 Rheumatoid arthritis, unspecified; K21.9 Gastro-esophageal reflux disease without esophagitis; N18.3 Chronic kidney disease, stage 3 (moderate); I12.9 Hypertensive chronic kidney disease with stage 1 through stage 4 chronic kidney disease, or unspecified chronic kidney disease; G47.33 Obstructive sleep apnea (adult) (pediatric); Z87.891 Personal history of nicotine dependence; Z88.0 Allergy status to penicillin; Z90.710 Acquired absence of both cervix and uterus; Z79.899 Other long term (current) drug therapy; Z90.49 Acquired absence of other specified parts of digestive tract; D53.9 Nutritional anemia, unspecified; F41.9 Anxiety disorder, unspecified
CPT/HCPCS: 36415; 71045; 80048; 80069; 82805; 83735; 85025; 94640; 94667; 94668; 96365; 96366; 96368; 96375; J0456; J0696; J1100; J1644; J1956; J2920; J3475; J7050; J7611; J7620